=== PATIENT | female | born 1965 | race American Indian/Alaskan Native ===

== ENCOUNTER 2016-10-21 12:27 | Emergency (ER) | payer OTHER ==
[2016-10-21 12:50] VITALS: BP 129/87
[2016-10-21] MEDS ORDERED: BENADRYL IV ONE (13:11)
--- NOTE | 2016-10-21 13:34 | Emergency Department Report ---
HPI - General Chief Complaint: Allergic Reaction Time Seen by Provider: 10/21/16 13:04 - HPI HPI: Chief complaint: Possible allergic reaction HPI: Patient is a 50-year-old female states she was at work and heard water running in the ceiling and then began dripping down out of the ceiling. Patient states that she and several of her coworkers started having coughing episodes and one of her coworkers vomited. Patient states that she herself is quite tightening in her throat and developed a rash around her neck. No wheezing swelling no drooling. patient has seasonal allergies as well as allergies to codeine and sulfa. it appears that there was a overflow of a toilet and that was where the water was coming from. Mode of arrival: Ambulated from another part of the hospital Source: [Patient] Began: Just prior to admission Duration: 30 minutes Context: See above Quality: Headache Severity: 7 out of 10 Improved with: Nothing Worsened with: Nothing Associated signs and symptoms: No fever, vomiting or diarrhea. No wheezing ED Past Medical Hx - Past Medical History Hx Hypertension: No Hx Asthma: Yes - Surgical History Hx Breast Surgery: Yes (left breast.) - Social History Smoking Status: Never Smoker Substance Use Type: None - Medications Home Medications: Home Medications Medication Instructions Recorded Confirmed Last Taken Type No Known Home Medications [No 05/26/14 05/26/14 Unknown History Reported Home Medications] ED Review of Systems ROS: Stated complaint: ALLERGIC REACTION Other details as noted in HPI ROS Constitutional: No fever ENT: No uri symptoms Cardiovascular: No chest pain Respiratory: No wheezing GI: No nausea vomiting or diarrhea : No dysuria frequency or urgency, Skin: See HPI Neuro: No focal weakness or numbness Psych: No depression Marino/lymph: No edema Physical Exam - Physical Exam Vital Signs: Vital Signs 10/21/16 12:45 Temperature 98.2 F Pulse Rate 103 H Respiratory 20 Rate Blood Pressure 129/87 O2 Sat by Pulse 100 Oximetry Physical Exam: GENERAL: The patient is well-developed well-nourished . HEENT: Normocephalic. Atraumatic. Extraocular motions are intact. Patient has moist mucous membranes. NECK: Supple. No meningitic signs are noted. There is no adenopathy noted. CHEST/LUNGS: Clear to auscultation. There is no respiratory distress noted. HEART/CARDIOVASCULAR: Regular. There is no tachycardia. There is no gallop rub or murmur. ABDOMEN: Abdomen is soft, nontender. Patient has normal bowel sounds. There is no abdominal distention. SKIN: Erythematous rash around patient's neck but no urticaria or welts noted. There is no edema. There is no diaphoresis. NEURO: The patient is awake, alert, and oriented. The patient is cooperative. The patient has no focal neurologic deficits. The patient has normal speech. MUSCULOSKELETAL: There is no tenderness or deformity. There is no limitation range of motion. There is no evidence of acute injury. ED Course Vital Signs 10/21/16 12:45 Temperature 98.2 F Pulse Rate 103 H Respiratory 20 Rate Blood Pressure 129/87 O2 Sat by Pulse 100 Oximetry - Reevaluation(s) Reevaluation #1: 10/21/16 13:33 Patient given 25 mg of Benadryl and 125 mg of Solu-Medrol IV. Critical care attestation.: If time is entered above; I have spent that time in minutes in the direct care of this critically ill patient, excluding procedure time. ED Disposition Clinical Impression: Allergic reaction Qualifiers: Encounter type: initial encounter Qualified Code(s): T78.40XA - Allergy, unspecified, initial encounter Disposition: DISCHARGED TO HOME OR SELFCARE Is pt being admited?: No Does the pt Need Aspirin: No Condition: Stable Instructions: Allergies (ED) Additional Instructions: Take Zyrtec (generic is fine) if he develops any further symptoms. Follow-up in an emergency room if your throat closes up or you begin wheezing or having difficulty breathing. Referrals: PRIMARY CARE,MD [Primary Care Provider] - 3-5 Days Time of Disposition: 15:02
[2016-10-21] MEDS ORDERED: TYLENOL PO ONE (15:04)
== END 2016-10-21 15:55 | disposition home or self-care (01) ==
LOC: ED 12:27
DX: T78.40XA Allergy, unspecified, initial encounter (principal); J45.909 Unspecified asthma, uncomplicated; Z88.6 Allergy status to analgesic agent; Z88.2 Allergy status to sulfonamides; X58.XXXA Exposure to other specified factors, initial encounter; Y93.89 Activity, other specified; Y99.8 Other external cause status; Y92.89 Other specified places as the place of occurrence of the external cause
CPT/HCPCS: 96374; 96375; 99282; J1200; J2930

== ENCOUNTER 2019-03-26 11:10 | Emergency (ER) | payer BC, OTHER ==
--- NOTE | 2019-03-26 11:21 | Event Note ---
ED Screening Note Date of service: 03/26/19 Time: 11:19 ED Screening Note: This is a 53 y.o. F. that presents to the ER with abdominal pain and nausea since last night. PMH Asthma LMP 03/02/2019 This initial assessment/diagnostic orders/clinical plan/treatment(s) is/are subject to change based on patients health status, clinical progression and re- assessment by fellow clinical providers in the ED. Further treatment and workup at subsequent clinical providers discretion. Patient/guardian urged not to elope from the ED as their condition may be serious if not clinically assessed and managed. Initial orders include: Labs
[2019-03-26 11:55] LABS: Bacteria,Urine 1+ /HPF (Negative); Bilirubin,Urine NEG (Negative); Blood,Urine NEG (Negative); Color,Urine Straw (Yellow); Protein,Urine <15 mg/dL mg/dL (Negative); Urobilinogen,Urine < 2.0 mg/dL (<2.0)
[2019-03-26] MEDS ORDERED: ZOFRAN IV ONE (11:56)
[2019-03-26] MEDS ORDERED: NACL 0.9% 1000 ML 1,000 ML IV ONE (11:56)
[2019-03-26 11:57] LABS: Basophils # (Auto) 0.1 K/mm3 (0.0-0.1); Basophils % (Auto) 1.3 % (0.0-1.8); Eosinophils % (Auto) 0.6 % (0.0-4.3); Hematocrit 39.6 % (30.3-42.9); Hemoglobin 13.3 gm/dl (10.1-14.3); Lymphocytes # (Auto) 1.2 K/mm3 (1.2-5.4); Lymphocytes % (Auto) 28.6 % (13.4-35.0); Mean Corpuscular HGB Conc 34 % (30-34); Mean Corpuscular Volume 92 fl (79-97); Monocytes # (Auto) 0.3 K/mm3 (0.0-0.8); Monocytes % (Auto) 7.9 % (0.0-7.3); Platelet Count 296 K/mm3 (140-440); Red Blood Count 4.29 M/mm3 (3.65-5.03); Red Cell Distribution Width 12.8 % (13.2-15.2)
[2019-03-26 12:19] LABS: Alanine Aminotransferase 16 units/L (7-56); BUN/Creatinine Ratio 17; Blood Urea Nitrogen 12 mg/dL (7-17); Calcium 9.5 mg/dL (8.4-10.2); Hemolysis Index 11
--- NOTE | 2019-03-26 12:20 | Emergency Department Report ---
ED Abdominal Pain HPI - General Chief Complaint: Abdominal Pain Stated Complaint: STOMACH PAIN Time Seen by Provider: 03/26/19 11:19 Source: patient Mode of arrival: Ambulatory Limitations: No Limitations - History of Present Illness Initial Comments: Patient is a 53-year-old female presents to the emergency room with complaints of epigastric abdominal pain that began last night. she describes the pain as a stabbing sensation. she has associated nausea and diarrhea. She denies any vomiting, fever, urinary symptoms, melena, hematochezia. she denies ever having this before. she states that yesterday she ate fried chicken. She states her only abdominal surgeries are tubal ligation and ovarian cyst removal. She states her only past medical history is asthma. Last menstrual cycle March 02. - Related Data Previous Rx's Medication Instructions Recorded Last Taken Type Dicyclomine [Bentyl] 10 mg PO QID PRN #20 capsule 03/26/19 Unknown Rx Famotidine [Pepcid] 20 mg PO BID #60 tablet 03/26/19 Unknown Rx Allergies Allergy/AdvReac Type Severity Reaction Status Date / Time codeine Allergy hallucinati Verified 05/26/14 13:14 ons Sulfa (Sulfonamide Allergy Rash Verified 05/26/14 13:13 Antibiotics) ED Review of Systems ROS: Stated complaint: STOMACH PAIN Other details as noted in HPI Comment: All other systems reviewed and negative ED Past Medical Hx - Past Medical History Previous Medical History?: Yes Hx Hypertension: No Hx Asthma: Yes - Surgical History Past Surgical History?: Yes Hx Breast Surgery: Yes (left breast.) - Social History Smoking Status: Never Smoker Substance Use Type: None - Medications Home Medications: Home Medications Medication Instructions Recorded Confirmed Last Taken Type Dicyclomine [Bentyl] 10 mg PO QID PRN #20 capsule 03/26/19 Unknown Rx Famotidine [Pepcid] 20 mg PO BID #60 tablet 03/26/19 Unknown Rx ED Physical Exam - General Limitations: No Limitations General appearance: alert, in no apparent distress - Head Head exam: Present: atraumatic, normocephalic - Eye Eye exam: Present: normal appearance, PERRL - ENT ENT exam: Present: mucous membranes moist - Respiratory Respiratory exam: Present: normal lung sounds bilaterally. Absent: respiratory distress, wheezes, rales, rhonchi, stridor, accessory muscle use, decreased breath sounds, prolonged expiratory - Cardiovascular Cardiovascular Exam: Present: regular rate, normal rhythm, normal heart sounds. Absent: systolic murmur, diastolic murmur, rubs, gallop - GI/Abdominal GI/Abdominal exam: Present: soft, tenderness (epigastric), normal bowel sounds. Absent: distended, guarding, rebound, rigid - Back Exam Back exam: Absent: CVA tenderness (R), CVA tenderness (L) - Neurological Exam Neurological exam: Present: alert, oriented X3 - Psychiatric Psychiatric exam: Present: normal affect, normal mood - Skin Skin exam: Present: warm, dry, intact ED Course Vital Signs 03/26/19 03/26/19 11:19 15:42 Temperature 98.1 F 98.6 F Pulse Rate 65 55 L Respiratory 22 16 Rate Blood Pressure 141/83 Blood Pressure 136/79 [Left] O2 Sat by Pulse 100 99 Oximetry ED Medical Decision Making - Lab Data Result diagrams: 03/26/19 11:37 03/26/19 11:37 - EKG Data EKG shows normal: sinus rhythm, axis, QRS complexes, ST-T waves Rate: bradycardia (at 59) - EKG Data 03/26/19 15:29 mildly prolonged KS interval at 218 - Radiology Data Radiology results: report reviewed CT ABDOMEN AND PELVIS WITH CONTRAST HISTORY: epigastric abd pain COMPARISON: None. TECHNIQUE: Axial CT images were obtained through the abdomen and pelvis after 100 cc of Omnipaque 300 intravenously. Sagittal and coronal reformatted images. All CT scans at this location are performed using CT dose reduction for ALARA by means of automated exposure cont rol. FINDINGS: CT ABDOMEN: Lung Bases: Clear. Liver: No significant abnormality. Biliary: No significant abnormality. Spleen: No significant abnormality. Unenlarged. Pancreas: No significant abnormality. Adrenals: No significant abnormality. Kidneys: No significant abnormality. Lymphatics: No lymphadenopathy. Vasculature: No significant abnormality. Bowel/Peritoneum: No significant abnormality. No free air. No free fluid. Normal appendix. CT PELVIS: : The uterus is lobulated with multiple small and medium sized fibroids. The largest fibroid measures 4.6 cm at the uterine fundus. A 3.2 cm right ovarian cyst is identified. The left adnexa is unremarkable. Osseous Structures: No significant abnormality. Additional Findings: None IMPRESSION: No acute inflammatory process is identified. Uterine fibroid disease. 3.2 cm right ovarian cyst. Deb Name: Otis Raza Jr, MD Signed: 03/26/2019 3:15 PM Workstation Name: [id number] Transcribed By: TTR Dictated By: OTIS RAZA JR, MD Electronically Authenticated By: OTIS RAZA JR, MD Signed Date/Time: 03/26/19 3225 - Medical Decision Making Patient is a 53-year-old female presents to the emergency room with complaints of epigastric abdominal pain that began last night. she describes the pain as a stabbing sensation. she has associated nausea and diarrhea. She denies any vomiting, fever, urinary symptoms, melena, hematochezia. she denies ever having this before. she states that yesterday she ate fried chicken. She states her only abdominal surgeries are tubal ligation and ovarian cyst removal. She states her only past medical history is asthma. Last menstrual cycle March 02. vitals are normal. on exam: epigastric TTP. labs WNL. UA without evidence of UTI. EKG with mildly prolonged KS interval, otherwise normal. CT abd pelvis shows: No acute inflammatory process is identified. Uterine fibroid disease. 3.2 cm right ovarian cyst. discussed CT results with pt. pt given 1L of NS and medications for GERD/PUD symptoms. pt states her symptoms improved. pt given prescription for bentyl and pepcid and given handout on diet for GERD. advised pt to please take medication as prescribed. Follow up with a GI doctor and [facility] in the next 2-3 days. Return to the emergency room for any new or worsening symptoms. - Differential Diagnosis gastritis, pancreatitis, PUD, GERD, cholcystitis, cholethiasis, ACS Critical care attestation.: If time is entered above; I have spent that time in minutes in the direct care of this critically ill patient, excluding procedure time. ED Disposition Clinical Impression: Abdominal pain Qualifiers: Abdominal location: epigastric Qualified Code(s): R10.13 - Epigastric pain GERD (gastroesophageal reflux disease) Qualifiers: Esophagitis presence: without esophagitis Qualified Code(s): K21.9 - Gastro- esophageal reflux disease without esophagitis Uterine fibroid Qualifiers: Uterine leiomyoma location: unspecified location Qualified Code(s): D25.9 - Leiomyoma of uterus, unspecified Ovarian cyst Qualifiers: Laterality: right Qualified Code(s): N83.201 - Unspecified ovarian cyst, right side Disposition: TO HOME OR SELFCARE Is pt being admited?: No Does the pt Need Aspirin: No Condition: Stable Instructions: Ovarian Cyst (ED), Uterine Fibroids (ED), Diet for Ulcers and Gastritis (ED), Gastroesophageal Reflux Disease (ED) Additional Instructions: Please take medication as prescribed. Follow up with a GI doctor and [facility] in the next 2-3 days. Return to the emergency room for any new or worsening symptoms. Prescriptions: Dicyclomine [Bentyl] 10 mg PO QID PRN #20 capsule PRN Reason: abdominal pain Famotidine [Pepcid] 20 mg PO BID #60 tablet Referrals: EAKLY LEONEL YOUSSEF MD [Primary Care Provider] - 2-3 Days [facility] [Provider Group] - 2-3 Days [facility] [Provider Group] - 2-3 Days Time of Disposition: 15:24 Print Language: GEORGIAN
[2019-03-26] MEDS ORDERED: BENTYL PO ONE (12:27)
[2019-03-26] MEDS ORDERED: ALUM-MAG HYDROX-SIMETH 200-200-20MG/5ML PO ONE (12:27)
[2019-03-26] MEDS ORDERED: LIDOCAINE VISCOUS 2% PO ONE (12:27)
--- NOTE | 2019-03-26 15:19 | Cat Scan Report ---
CT ABDOMEN AND PELVIS WITH CONTRAST HISTORY: epigastric abd pain COMPARISON: None. TECHNIQUE: Axial CT images were obtained through the abdomen and pelvis after 100 cc of Omnipaque 300 intravenously. Sagittal and coronal reformatted images. All CT scans at this location are performed using CT dose reduction for ALARA by means of automated exposure control. FINDINGS: CT ABDOMEN: Lung Bases: Clear. Liver: No significant abnormality. Biliary: No significant abnormality. Spleen: No significant abnormality. Unenlarged. Pancreas: No significant abnormality. Adrenals: No significant abnormality. Kidneys: No significant abnormality. Lymphatics: No lymphadenopathy. Vasculature: No significant abnormality. Bowel/Peritoneum: No significant abnormality. No free air. No free fluid. Normal appendix. CT PELVIS: : The uterus is lobulated with multiple small and medium sized fibroids. The largest fibroid measur es 4.6 cm at the uterine fundus. A 3.2 cm right ovarian cyst is identified. The left adnexa is unrema rkable. Osseous Structures: No significant abnormality. Additional Findings: None IMPRESSION: No acute inflammatory process is identified. Uterine fibroid disease. 3.2 cm right ovarian cyst. Signer Name: Otis Coburn Jr, MD Signed: 03/26/2019 3:15 PM Workstation Name: [id number]
[2019-03-26 15:50] VITALS: BP 136/79
== END 2019-03-26 15:45 | disposition home or self-care (01) ==
LOC: ED 11:10 → EEVIPCON 11:10 → ED 15:45
DX: K21.9 Gastro-esophageal reflux disease without esophagitis (principal); D25.9 Leiomyoma of uterus, unspecified; N83.201 Unspecified ovarian cyst, right side; J45.909 Unspecified asthma, uncomplicated; Z98.890 Other specified postprocedural states; Z79.899 Other long term (current) drug therapy; Z88.5 Allergy status to narcotic agent; Z88.2 Allergy status to sulfonamides
CPT/HCPCS: 36415; 74177; 80053; 81001; 83690; 84484; 84703; 85025; 93005; 93010; 96361; 96374; 99284; J2405; J7030; Q9967

== ENCOUNTER 2019-04-20 07:06 | Outpatient (CLI) | payer BC ==
--- NOTE | 2019-04-20 09:43 | Mammography Report ---
BILATERAL DIGITAL SCREENING MAMMOGRAM WITH CAD INDICATION: Screening. COMPARISONS: 02/10/2017 and 01/30/2016 FINDINGS: Craniocaudal and mediolateral oblique views of both breasts were obtained using 2-D digital acquisition. In addition to standard review, the examination was analyzed for possible abnormalities using a computer-assisted detection device (iCAD). The breast tissue is heterogeneously dense, which may obscure small masses. A left asymmetry on the MLO view requires additional imaging. No suspicious calcifications. The right breast is negative. IMPRESSION: Left asymmetry requiring additional imaging. Recommend recall for left lateral and spot compression M LO views and left breast ultrasound if needed. BI-RADS CATEGORY 0: INCOMPLETE - NEED ADDITIONAL IMAGING EVALUATION AND/OR PRIOR MAMMOGRAMS FOR COMP ARISON Information is entered into a reminder system for a target due date for the next mammogram. The resul ts and recommendations were sent to the patient by mail. Signer Name: Salvador Scherer MD Signed: 04/20/2019 9:38 AM Workstation Name: [id number]
== END 2019-04-20 07:07 | disposition home or self-care (01) ==
LOC: MAMMO 07:06
PROVIDERS: ATTEND Internal Medicine
DX: Z12.31 Encounter for screening mammogram for malignant neoplasm of breast (principal); J45.909 Unspecified asthma, uncomplicated; K21.9 Gastro-esophageal reflux disease without esophagitis
CPT/HCPCS: 77067

== ENCOUNTER 2019-04-23 07:12 | Outpatient (CLI) | payer BC ==
--- NOTE | 2019-04-23 08:31 | Mammography Report ---
DIGITAL DIAGNOSTIC MAMMOGRAM WITH CAD, -- 04/23/2019 INDICATION: Patient presents as a callback from screening for further evaluation of an asymmetry in t he left breast. TECHNIQUE: Digital left mammographic imaging was performed. Spot compression views were obtained. This examination was interpreted with the benefit of Computer-aided Detection analysis. COMPARISON: Prior mammograms dated 04/20/2019, 01/30/2016, and 01/16/2016 FINDINGS: Breast Density: The breasts are heterogeneously dense, which may obscure small masses. The previously described asymmetry in the left breast does not persist on additional views, compatibl e with overlapping fibroglandular tissue. There is no evidence of dominant mass, suspicious calcifica tions or architectural distortion in the left breast. IMPRESSION: Follow up recommendation: Routine yearly BI-RADS Category 1: Negative. Recommend routine screening mammography in one year. A "normal" or negative report should not discourage follow up or biopsy of a clinically significant f inding. A written summary of these findings will be mailed to the patient. The patient will be entered into a mammography reporting system which will generate a reminder letter for the patient's next appointmen t at the appropriate interval. According to the [employer] [place] [employer], yearly mammograms are recommended starting at age 40 and continuing as long as a woman is in good health. Breast MRI is recommended for women with an ilene roximately 20-25% or greater lifetime risk of breast cancer, including women with a strong family his tory of breast or ovarian cancer and women who have been treated for Hodgkin's disease. Signer Name: Malou Martinez MD Signed: 04/23/2019 8:27 AM Workstation Name: [id number]
== END 2019-04-23 07:13 | disposition home or self-care (01) ==
LOC: US 07:12
PROVIDERS: ATTEND Internal Medicine
DX: R92.8 Other abnormal and inconclusive findings on diagnostic imaging of breast (principal); Z80.3 Family history of malignant neoplasm of breast; Z80.41 Family history of malignant neoplasm of ovary

== ENCOUNTER 2019-05-10 07:03 | Emergency (ER) | payer BC ==
--- NOTE | 2019-05-10 08:03 | XRay Report ---
CHEST 2 VIEWS INDICATION: Chest Pain. COMPARISON: None FINDINGS: Support devices: None. Heart: Within normal limits. Lungs/pleura: No acute air space or interstitial disease. No pneumothorax. Additional findings: None. IMPRESSION: No acute findings. Signer Name: Otis Coburn Jr, MD Signed: 05/10/2019 7:59 AM Workstation Name: [id number]
[2019-05-10 08:27] LABS: Basophils % (Auto) 0.7 % (0.0-1.8); Eosinophils % (Auto) 0.3 % (0.0-4.3); Hemoglobin 12.7 gm/dl (10.1-14.3); Lymphocytes # (Auto) 1.4 K/mm3 (1.2-5.4); Lymphocytes % (Auto) 26.3 % (13.4-35.0); Mean Corpuscular HGB Conc 33 % (30-34); Mean Corpuscular Volume 93 fl (79-97); Monocytes # (Auto) 0.4 K/mm3 (0.0-0.8); Monocytes % (Auto) 8.3 % (0.0-7.3); Platelet Count 266 K/mm3 (140-440); Red Blood Count 4.08 M/mm3 (3.65-5.03); Red Cell Distribution Width 12.9 % (13.2-15.2)
[2019-05-10 08:29] LABS: BUN/Creatinine Ratio 10; Blood Urea Nitrogen 7 mg/dL (7-17); Calcium 8.5 mg/dL (8.4-10.2); Hemolysis Index 3
[2019-05-10] MEDS ORDERED: ZOFRAN IV ONE (08:53)
[2019-05-10] MEDS ORDERED: LIDOCAINE VISCOUS 2% PO ONE (08:53)
[2019-05-10] MEDS ORDERED: ALUM-MAG HYDROX-SIMETH 200-200-20MG/5ML PO ONE (08:53)
[2019-05-10] MEDS ORDERED: SUBLIMAZE IV ONE ×3 (08:54→10:00)
--- NOTE | 2019-05-10 08:59 | Emergency Department Report ---
ED Chest Pain HPI - General Chief Complaint: Chest Pain Stated Complaint: CHEST PAIN, GERD Time Seen by Provider: 05/10/19 08:49 Source: patient Mode of arrival: Ambulatory Limitations: No Limitations - History of Present Illness Initial Comments: Patient is 53 years old female with history of GERD. Patient presented to the ER complaining of substernal chest pain that radiated to her upper abdomen. Patient stated that pain started 3 days ago. She stated that initially she thought this is may be GERD symptoms but is just getting worse. She stated that she is unable to lay flat on her bed because of the pain. Patient denied any recent fever or chills. No nausea or vomiting. MD Complaint: chest pain -: days(s) (3) Onset: during rest Pain Location: substernal Pain Radiation: none Severity: severe Severity scale (0 -10): 9 Quality: tightness Consistency: intermittent Improves With: nothing Worsens With: nothing - Related Data Home Medications Medication Instructions Recorded Confirmed Last Taken Fluticasone Propion/Salmeterol 1 each IH BID 05/10/19 05/10/19 05/09/19 [Fluticasone-Salmeterol 250-50] Omeprazole 20 mg PO QDAY 05/10/19 05/10/19 05/09/19 cycloSPORINE [Restasis 0.05%] 1 drop OP BID 05/10/19 05/10/19 05/09/19 Allergies Allergy/AdvReac Type Severity Reaction Status Date / Time codeine Allergy hallucinati Verified 05/26/14 13:14 ons Sulfa (Sulfonamide Allergy Rash Verified 05/26/14 13:13 Antibiotics) Heart Score - HEART Score History: Slightly suspicious EKG: Non-specific Age: < 45 Risk factors: No known risk factors Troponin: < normal limit HEART Score: 1 ED Review of Systems ROS: Stated complaint: CHEST PAIN, GERD Other details as noted in HPI Comment: All other systems reviewed and negative Constitutional: denies: chills, fever Respiratory: denies: cough, shortness of breath, SOB with exertion, SOB at rest Cardiovascular: chest pain. denies: palpitations Gastrointestinal: abdominal pain (epigastric). denies: nausea, vomiting Musculoskeletal: denies: back pain Neurological: denies: headache, weakness, numbness, paresthesias, confusion ED Past Medical Hx - Past Medical History Previous Medical History?: Yes Hx Hypertension: No Hx GERD: Yes Hx Asthma: Yes - Surgical History Past Surgical History?: Yes Hx Breast Surgery: Yes (left breast.) - Social History Smoking Status: Never Smoker Substance Use Type: None - Medications Home Medications: Home Medications Medication Instructions Recorded Confirmed Last Taken Type Fluticasone Propion/Salmeterol 1 each IH BID 05/10/19 05/10/19 05/09/19 History [Fluticasone-Salmeterol 250-50] Omeprazole 20 mg PO QDAY 05/10/19 05/10/19 05/09/19 History cycloSPORINE [Restasis 0.05%] 1 drop OP BID 05/10/19 05/10/19 05/09/19 History ED Physical Exam - General Limitations: No Limitations General appearance: alert, in no apparent distress, anxious - Head Head exam: Present: atraumatic, normocephalic, normal inspection - Eye Eye exam: Present: normal appearance, PERRL - ENT ENT exam: Present: normal exam, normal orophraynx, mucous membranes moist - Neck Neck exam: Present: normal inspection, full ROM. Absent: tenderness, meningismus, lymphadenopathy, thyromegaly - Respiratory Respiratory exam: Present: normal lung sounds bilaterally - Cardiovascular Cardiovascular Exam: Present: regular rate, normal rhythm, normal heart sounds - GI/Abdominal GI/Abdominal exam: Present: soft, normal bowel sounds. Absent: distended, tenderness, guarding, rebound, rigid, organomegaly, mass, bruit, pulsatile mass, hernia - Extremities Exam Extremities exam: Present: normal inspection, full ROM, normal capillary refill. Absent: tenderness, pedal edema, calf tenderness - Back Exam Back exam: Present: normal inspection, full ROM. Absent: CVA tenderness (R), CVA tenderness (L), muscle spasm, paraspinal tenderness, vertebral tenderness - Neurological Exam Neurological exam: Present: alert, oriented X3, CN II-XII intact, normal gait, reflexes normal - Skin Skin exam: Present: warm, intact, normal color ED Course Vital Signs 05/10/19 05/10/19 05/10/19 07:09 09:30 11:49 Temperature 98.1 F 97.7 F Pulse Rate 90 78 64 Respiratory 16 20 16 Rate Blood Pressure 115/79 133/86 114/72 [Left] O2 Sat by Pulse 100 100 100 Oximetry 05/10/19 05/10/19 05/10/19 13:00 14:00 15:00 Temperature 97.9 F Pulse Rate 74 72 74 Respiratory 14 16 16 Rate Blood Pressure 122/78 118/71 122/78 [Left] O2 Sat by Pulse 100 98 100 Oximetry ED Medical Decision Making - Lab Data Result diagrams: 05/10/19 07:24 05/10/19 07:24 - EKG Data -: EKG Interpreted by In EKG shows normal: sinus rhythm Rate: normal - Radiology Data Radiology results: report reviewed Referring Physician: NADEEN QUICK Patient Name: OSVALDO KEATING Date of : 1965 Sex: Female Report Date: 2019-05-10 Report Status: Finalized Findings [address] [address] XRay Report Signed Patient: OSVALDO KEATING MR#: [id number] : 1965 Acct:[id number] Age/Sex: 53 / F ADM Date: 05/10/19 Loc: ED Attending Dr: Ordering Physician: NADEEN QUICK MD Date of Service: 05/10/19 Procedure(s): XR chest routine 2V Accession Number(s): [id number] cc: ED MD ABDELRAHMAN Fluoro Time In Minutes: CHEST 2 VIEWS INDICATION: Chest Pain. COMPARISON: None FINDINGS: Support devices: None. Heart: Within normal limits. Lungs/pleura: No acute air space or interstitial disease. No pneumothorax. Additional findings: None. IMPRESSION: No acute findings. Signer Name: Otis Coburn Jr, MD Signed: 05/10/2019 7:59 AM Workstation Name: [id number] Transcribed By: TTR Dictated By: OTIS COBURN JR, MD Electronically Authenticated By: OTIS COBURN JR, MD Signed Date/Time: 05/10/19 0759 Referring Physician: SHAQUILLE HENRY Patient Name: OSVALDO KEATING Date of : 1965 Sex: Female Report Date: 2019-05-10 Report Status: Finalized Findings [address] [address] Nuclear Medicine Report Signed Patient: OSVALDO KEATING MR#: [id number] : 1965 Acct:[id number] Age/Sex: 53 / F ADM Date: 05/10/19 Loc: ED Attending Dr: Ordering Physician: SHAQUILLE HENRY Date of Service: 05/10/19 Procedure(s): NM lung scan perf/vent Accession Number(s): [id number] cc: SHAQUILLE HENRY VENTILATION PERFUSION PULMONARY SCINTIGRAPHY HISTORY: Chest pain, shortness of breath COMPARISON: 05/10/2019 chest radiograph. TECHNIQUE: Radiopharmaceutical was inhaled. Tc-99m-MAA was then injected. Ventilation and perfusion images were acquired. RADIOPHARMACEUTICAL: 9.6 mCi of Xe-133 inhaled 4.5 mCi of Tc-99m-MAA injected FINDINGS: VENTILATION: No significant air trapping or defect. PERFUSION: No significant segmental or non-segmental defect. Additional Findings: None. IMPRESSION: 1. Low probability for pulmonary embolism. Signer Name: Otis Coburn Jr, MD Signed: 05/10/2019 11:41 AM Workstation Name: [id number] Transcribed By: TTR Dictated By: OTIS COBURN JR, MD Electronically Authenticated By: OTIS COBURN JR, MD Signed Date/Time: 05/10/19 1141 DD/ 1140 TD/TT: Referring Physician: SHAQUILLE HENRY Patient Name: OSVALDO KEATING Date of : 1965 Sex: Female Report Date: 2019-05-10 Report Status: Finalized Findings [facility] [address] [place] [address] Cat Scan Report Signed Patient: OSVALDO KEATING MR#: [id number] : 1965 Acct:[id number] Age/Sex: 53 / F ADM Date: 05/10/19 Loc: ED Attending Dr: Ordering Physician: SHAQUILLE HENRY Date of Service: 05/10/19 Procedure(s): CT abdomen pelvis wo con Accession Number(s): [id number] cc: SHAQUILLE HENRY CT ABDOMEN AND PELVIS WITHOUT CONTRAST HISTORY: ABDOMINAL PAIN COMPARISON: 03/26/2019 TECHNIQUE: Routine abdominal and pelvic CT exam performed without contrast. Lack of intravenous contrast limits evaluation of the vascular and solid organs. Note: All CT scans at this location are performed using CT dose reduction employed for [facility] by means of automated exposure control. CONTRAST: None. FINDINGS: CT ABDOMEN: Lung Bases: Clear. Liver: No significant abnormality. Biliary: No significant abnormality. Spleen: No significant abnormality. Unenlarged. Pancreas: No significant abnormality. Adrenals: No significant abnormality. Kidneys: No significant abnormality. Lymphatics: No lymphadenopathy. Vasculature: No significant abnormality. Bowel/Peritoneum: No significant abnormality. No free air. No free fluid. Normal appendix. CT PELVIC: : Enlarged uterus with a lobulated contour consistent with uterine fibroids. A 3 cm right ovarian cyst and an adjacent 1 cm tubular structure consistent with a hydrosalpinx. A 2.3 cm cyst of the left ovary. Osseous Structures: No significant abnormality. Additional Findings: No mass or free fluid. IMPRESSION: 1. Normal abdomen. 2. Bilateral ovarian cysts. 3. A small right hydrosalpinx. . Signer Name: Ike Payne MD Signed: 05/10/2019 3:22 PM Workstation Name: [id number] Transcribed By: REF Dictated By: IKE PAYNE MD Electronically Authenticated By: IKE PAYNE MD Signed Date/Time: 05/10/19 1522 DD/ 1515 TD/TT: DD/ 0758 TD/TT: - Medical Decision Making Patient is 53 years old female with history of GERD. Patient presented to the ER complaining of substernal chest pain that radiated to her upper abdomen. Patient stated that pain started 3 days ago. She stated that initially she thought this is may be GERD symptoms but is just getting worse. She stated that she is unable to lay flat on her bed because of the pain. Patient denied any recent fever or chills. No nausea or vomiting. Patient EKG no ST elevation or depression. Chest x-ray is unremarkable. Labs reviewed and show a slightly elevated d-dimer for which patient had a VQ scan study which it came back low probability for PE. CT abdomen and pelvis is negative for acute finding. Patient's symptoms significantly improved with morphine and GI cocktail. 2 sets of troponin is negative. I believe patient's symptoms is most likely related to gastritis in GERD. Patient advised to follow-up with her GI doctor in the next 2-3 days for possible upper GI endoscopy. Patient also advised to return to the ER if symptoms are not improve d. Critical care attestation.: If time is entered above; I have spent that time in minutes in the direct care of this critically ill patient, excluding procedure time. ED Disposition Clinical Impression: Chest pain, Abdominal pain Disposition: TO HOME OR SELFCARE Is pt being admited?: No Condition: Stable Instructions: Chest Pain (ED), Acute Abdominal Pain (ED) Referrals: LEONEL GARCIA MD [Primary Care Provider] - 3-5 Days
[2019-05-10] MEDS ORDERED: SUBLIMAZE IV NR (09:00)
[2019-05-10] MEDS ORDERED: ZOFRAN IM ONE (09:10)
[2019-05-10 10:02] LABS: INR 1.02 (0.87-1.13)
[2019-05-10 10:05] LABS: Partial Thromboplastin Time 24.8 Sec. (24.2-36.6)
--- NOTE | 2019-05-10 11:46 | Nuclear Medicine Report ---
VENTILATION PERFUSION PULMONARY SCINTIGRAPHY HISTORY: Chest pain, shortness of breath COMPARISON: 05/10/2019 chest radiograph. TECHNIQUE: Radiopharmaceutical was inhaled. Tc-99m-MAA was then injected. Ventilation and perfusion images were acquired. RADIOPHARMACEUTICAL: 9.6 mCi of Xe-133 inhaled 4.5 mCi of Tc-99m-MAA injected FINDINGS: VENTILATION: No significant air trapping or defect. PERFUSION: No significant segmental or non-segmental defect. Additional Findings: None. IMPRESSION: 1. Low probability for pulmonary embolism. Signer Name: Otis Coburn Jr, MD Signed: 05/10/2019 11:41 AM Workstation Name: [id number]
[2019-05-10] MEDS ORDERED: MORPHINE IV ONE (14:58)
--- NOTE | 2019-05-10 15:26 | Cat Scan Report ---
CT ABDOMEN AND PELVIS WITHOUT CONTRAST HISTORY: ABDOMINAL PAIN COMPARISON: 03/26/2019 TECHNIQUE: Routine abdominal and pelvic CT exam performed without contrast. Lack of intravenous cont rast limits evaluation of the vascular and solid organs. Note: All CT scans at this location are perf ormed using CT dose reduction employed for [facility] by means of automated exposure control. CONTRAST: None. FINDINGS: CT ABDOMEN: Lung Bases: Clear. Liver: No significant abnormality. Biliary: No significant abnormality. Spleen: No significant abnormality. Unenlarged. Pancreas: No significant abnormality. Adrenals: No significant abnormality. Kidneys: No significant abnormality. Lymphatics: No lymphadenopathy. Vasculature: No significant abnormality. Bowel/Peritoneum: No significant abnormality. No free air. No free fluid. Normal appendix. CT PELVIC: : Enlarged uterus with a lobulated contour consistent with uterine fibroids. A 3 cm right ovarian c yst and an adjacent 1 cm tubular structure consistent with a hydrosalpinx. A 2.3 cm cyst of the left ovary. Osseous Structures: No significant abnormality. Additional Findings: No mass or free fluid. IMPRESSION: 1. Normal abdomen. 2. Bilateral ovarian cysts. 3. A small right hydrosalpinx. . Signer Name: Salvador Scherer MD Signed: 05/10/2019 3:22 PM Workstation Name: [id number]
[2019-05-10 16:17] VITALS: BP 114/69
== END 2019-05-10 16:17 | disposition home or self-care (01) ==
LOC: ED 07:03
DX: R07.89 Other chest pain (principal); R10.9 Unspecified abdominal pain; K21.9 Gastro-esophageal reflux disease without esophagitis; J45.909 Unspecified asthma, uncomplicated; Z98.890 Other specified postprocedural states; Z88.6 Allergy status to analgesic agent; Z88.2 Allergy status to sulfonamides
CPT/HCPCS: 36415; 71046; 74176; 78582; 80048; 83690; 84484; 84703; 85025; 85379; 85610; 85730; 93005; 93010; 96372; 96374; 96375; 99285; A9540; A9558; J2270; J2405; J3010

== ENCOUNTER 2019-05-24 07:16 | Outpatient (CLI) | payer BC ==
[~2019-05-24 07:16] MED LIST: REGADENOSON 0.4 MG/5 ML INJ IV ONE
--- NOTE | 2019-05-24 08:01 | Ultrasound Report ---
LIMITED RUQ ABDOMINAL ULTRASOUND INDICATION: R10.13 ABDOMINAL PAIN. COMPARISON: Noncontrast CT abdomen and pelvis dated 05/10/2019. FINDINGS: Pancreas: Visualized portions show no significant abnormality. Abdominal Aorta: No significant abnormality. IVC: No significant abnormality. Liver: The liver measures 14 cm in length. No significant abnormality. Normal hepatopedal blood flow in the main portal vein. Gallbladder: No significant abnormality. Bile ducts: No significant abnormality. Common bile duct measures 3 mm. Right kidney: No significant abnormality visualized.. Free fluid: None. Additional Findings: None. IMPRESSION: Normal exam. Signer Name: Otis Coburn Jr, MD Signed: 05/24/2019 7:56 AM Workstation Name: [id number]
== END 2019-05-24 07:17 | disposition home or self-care (01) ==
LOC: US 07:16
PROVIDERS: ATTEND Internal Medicine Gastroenterology
DX: R10.13 Epigastric pain (principal); J45.909 Unspecified asthma, uncomplicated; K21.9 Gastro-esophageal reflux disease without esophagitis
CPT/HCPCS: 76705; J2785

== ENCOUNTER 2019-06-01 10:48 | Day surgery (SDC) | payer BC ==
[~2019-06-01 10:48] MED LIST changes: -REGADENOSON 0.4 MG/5 ML INJ IV ONE; +SODIUM CHLORIDE 0.9% 1000 ML 1,000 ML IV SCH
--- NOTE | 2019-06-01 11:17 | Anesthesia Day of Surgery ---
Anesthesia Day of Surgery - Day of Surgery Patient Examined: Yes Patient H&P Reviewed: Yes Patient is NPO: Yes
--- NOTE | 2019-06-01 11:20 | Anesthesia Consultation ---
Anesthesia Consult and Med Hx Date of service: 06/01/19 - Airway Anesthetic Teeth Evaluation: Good ROM Head & Neck: Adequate Mental/Hyoid Distance: Adequate Mallampati Class: Class II Intubation Access Assessment: Probably Good - Pulmonary Exam CTA: Yes - Cardiac Exam Cardiac Exam: RRR - Pre-Operative Health Status ASA Pre-Surgery Classification: ASA2 Proposed Anesthetic Plan: General, MAC - Pulmonary Hx Asthma: Yes - Cardiovascular System Hx Hypertension: No - Gastrointestinal Hx Gastroesophageal Reflux Disease: Yes (presented to the ED with chest pain. negative cardiac enzymes and no pe. ) - Other Systems Hx Cancer: No
[2019-06-01] MEDS ORDERED: PROPOFOL 200 MG/20 ML VIAL IV ONE (12:25)
--- NOTE | 2019-06-01 13:07 | Short Stay Summary ---
Short Stay Documentation Date of service: 06/01/19 - History H&P: obtained from office - Allergies and Medications Current Medications: Allergies codeine Allergy (Verified 05/26/14 13:14) hallucinations shrimp Allergy (Verified 05/17/19 20:12) Hives Sulfa (Sulfonamide Antibiotics) Allergy (Verified 05/26/14 13:13) Rash Home Medications Medication Instructions Recorded Confirmed Last Taken Type RX: Fluticasone Propion/Salmeterol 1 each IH BID 05/10/19 06/01/19 05/29/19 History [Fluticasone-Salmeterol 250-50] Pantoprazole [Protonix] 40 mg PO QDAY #30 tablet 05/19/19 06/01/19 05/29/19 Rx ALBUTEROL Inhaler (OR & NICU) 2 puff INHALATION PRN PRN 06/01/19 06/01/19 05/18/19 History Advair Diskus 250-50 mcg 1 puff INHALATION BID 06/01/19 06/01/19 05/29/19 History NexIUM 40 mg PO DAILY 06/01/19 06/01/19 05/29/19 History Active Medications Sodium Chloride (Nacl 0.9% 1000 Ml) 1,000 mls @ 50 mls/hr IV DIRECT VALERIA Last Admin: 06/01/19 11:56 Dose: 50 mls/hr Documented by: - Brief post op/procedure progress note Date of procedure: 06/01/19 Findings: see dictation Estimated blood loss: none Pathology: none Condition: stable - Disposition Condition at discharge: Good Disposition: DC-01 TO HOME OR SELFCARE - Discharge Diagnoses (1) Colon cancer screening Status: Acute Short Stay Discharge Plan Activity: other (no driving for 24 hours) Weight Bearing Status: Full Weight Bearing Diet: regular Follow up with: EAN RIOS MD [Primary Care Provider] - 7 Days
--- NOTE | 2019-06-01 13:08 | Operative Report ---
Operative Report Operative Report: Date of procedure: 06/01/2019 Preprocedure diagnosis: Colon cancer screening, no prior studies. Average risk. Post procedure diagnosis: Normal study study Procedure: Colonoscopy to the cecum Endoscopist: Dr. Conley Anesthesia: Monitored anesthesia care per anesthesia department Estimated blood loss: 0 Medications: Monitored anesthesia care. See separate report by anesthesia for details. After careful discussion of the nature and purpose of the procedure as well as details of the technique risks benefits and alternatives the patient gave consent. Please see recent history and physical from the office. The patient was placed in the left lateral decubitus position and medicated per anesthesia. A rectal exam was performed sphincter tone was normal there were no masses palpable. The Olympus colonoscope was passed transanally and advanced under continuous direct vision without difficulty to the cecum. The colon was well prepared. The cecum was normal. The ascending colon was normal and on forward and retroflexed views. The transverse colon, descending colon, and sigmoid colon were normal. The rectum was normal on forward and retroflexed views. The procedure was well-tolerated overall and the patient was observed in recovery. Conclusions: Normal colonoscopy to the cecum. Plan: Repeat colonoscopy in 10 years, sooner if clinically indicated. Signed electronically: Lee Conley M.D.
[2019-06-01 13:33] VITALS: BP 125/71
--- NOTE | 2019-06-02 13:20 | Post Anesthesia Evaluation ---
- Post Anesthesia Evaluation Patient Participated: Yes Airway Patent: Yes Stable Respiratory Function: Yes Nausea/Vomiting: No Temp > 96.8F: Yes Pain Manageable: Yes Adequeate Hydration: Yes Anesthesia Complications: No Block Receding Appropriately: Not Applicable Patient on Ventilator: No
== END 2019-06-01 10:49 | disposition home or self-care (01) ==
LOC: GIO 10:48
PROVIDERS: ATTEND Internal Medicine Gastroenterology
DX: R10.9 Unspecified abdominal pain (principal); R14.0 Abdominal distension (gaseous); J45.909 Unspecified asthma, uncomplicated; K21.9 Gastro-esophageal reflux disease without esophagitis; Z79.899 Other long term (current) drug therapy; Z88.5 Allergy status to narcotic agent; Z88.2 Allergy status to sulfonamides; Z87.19 Personal history of other diseases of the digestive system; Z98.51 Tubal ligation status; Z98.890 Other specified postprocedural states
CPT/HCPCS: 45378; 81025; J2704; J7030

== ENCOUNTER 2019-10-17 12:07 | Emergency (ER) | payer BC ==
--- NOTE | 2019-10-17 12:57 | Event Note ---
ED Screening Note ED Screening Note: states that her face was swelling, states she has been on steroids states it began 10/11/2019 states she still feels like she has swelling/tingling +nausea after taking steroids no v/d no urinary sx no vision changes PMHx GERD, asthma allergy: codine, sulfa, shrimp This initial assessment/diagnostic orders/clinical plan/treatment(s) is/are subject to change based on patients health status, clinical progression and re- assessment by fellow clinical providers in the ED. Further treatment and workup at subsequent clinical providers discretion. Patient/guardian urged not to elope from the ED as their condition may be serious if not clinically assessed and managed.
--- NOTE | 2019-10-17 14:25 | Emergency Department Report ---
ED General Adult HPI - General Chief complaint: Nausea/Vomiting/Diarrhea Stated complaint: SWOLLEN FACE Time Seen by Provider: 10/17/19 12:54 Source: patient Mode of arrival: Ambulatory Limitations: No Limitations - History of Present Illness Initial comments: This is a 53-year-old female nontoxic, well nourished in appearance, no acute signs of distress presents to the ED with c/o of acute left frontal scalp pain and swelling x few days. Stated has been taking Prednisone by PCP. Stated has some nausea without vomiting. Patient denies thunderclap headache. Patient denies any radiation of pain. Patient denies any head trauma. Patient denies a ny visual changes. Patient denies worse headache. Denies abrupt onset of visual disturbances or mononuclear visual loss. patient denies any numbness, tingling, fever, chills, nausea, vomiting, chest pain, shortness of breath, stiff neck. Patient denies facial drooping or one sided weakness. Patient stated allergies to codeine and sulfa. -: days(s) Location: head Radiation: non-radiation Severity scale (0 -10): 3 Quality: aching Consistency: constant Improves with: none Worsens with: none Associated Symptoms: headaches. denies: confusion, chest pain, cough, diaph oresis, fever/chills, loss of appetite, malaise, nausea/vomiting, rash, seizure, shortness of breath, syncope, weakness Treatments Prior to Arrival: other (prednisone) - Related Data Home Medications Medication Instructions Recorded Confirmed Last Taken Fluticasone Propion/Salmeterol 1 each IH BID 05/10/19 06/01/19 05/29/19 [Fluticasone-Salmeterol 250-50] ALBUTEROL Inhaler (OR & NICU) 2 puff INHALATION PRN PRN 06/01/19 06/01/19 05/18/19 Advair Diskus 250-50 mcg 1 puff INHALATION BID 06/01/19 06/01/19 05/29/19 NexIUM 40 mg PO DAILY 06/01/19 06/01/19 05/29/19 Previous Rx's Medication Instructions Recorded Last Taken Type Pantoprazole [Protonix TAB] 40 mg PO QDAY #30 tablet 05/19/19 05/29/19 Rx Allergies Allergy/AdvReac Type Severity Reaction Status Date / Time codeine Allergy hallucinati Verified 05/26/14 13:14 ons shrimp Allergy Hives Verified 05/17/19 20:12 Sulfa (Sulfonamide Allergy Rash Verified 05/26/14 13:13 Antibiotics) ED Review of Systems ROS: Stated complaint: SWOLLEN FACE Other details as noted in HPI Constitutional: denies: chills, fever Eyes: denies: eye pain, eye discharge, vision change ENT: denies: ear pain, throat pain Respiratory: denies: cough, shortness of breath, wheezing Cardiovascular: denies: chest pain, palpitations Endocrine: no symptoms reported Gastrointestinal: denies: abdominal pain, nausea, diarrhea Genitourinary: denies: urgency, dysuria, discharge Musculoskeletal: denies: back pain, joint swelling, arthralgia Skin: denies: rash, lesions Neurological: headache. denies: weakness, paresthesias Psychiatric: denies: anxiety, depression Hematological/Lymphatic: denies: easy bleeding, easy bruising ED Past Medical Hx - Past Medical History Previous Medical History?: Yes Hx Hypertension: No Hx GERD: Yes Hx Asthma: Yes - Surgical History Past Surgical History?: Yes Hx Breast Surgery: Yes (left breast.) - Social History Smoking Status: Never Smoker Substance Use Type: None - Medications Home Medications: Home Medications Medication Instructions Recorded Confirmed Last Taken Type Fluticasone Propion/Salmeterol 1 each IH BID 05/10/19 06/01/19 05/29/19 History [Fluticasone-Salmeterol 250-50] Pantoprazole [Protonix TAB] 40 mg PO QDAY #30 tablet 05/19/19 06/01/19 05/29/19 Rx ALBUTEROL Inhaler (OR & NICU) 2 puff INHALATION PRN PRN 06/01/19 06/01/19 05/18/19 History Advair Diskus 250-50 mcg 1 puff INHALATION BID 06/01/19 06/01/19 05/29/19 History NexIUM 40 mg PO DAILY 06/01/19 06/01/19 05/29/19 History ED Physical Exam - General Limitations: No Limitations General appearance: alert, in no apparent distress - Head Head exam: Present: atraumatic, normocephalic - Expanded Head Exam Expanded 1 - slight swelling noted here - Eye Eye exam: Present: normal appearance, PERRL, EOMI Pupils: Present: normal accommodation - ENT ENT exam: Present: normal exam, normal orophraynx, other (uvula midline. no swelling. no angioedema. ) - Neck Neck exam: Present: normal inspection, full ROM. Absent: tenderness, meningismus, lymphadenopathy - Respiratory Respiratory exam: Present: normal lung sounds bilaterally. Absent: respiratory distress, wheezes, rales, rhonchi, stridor, chest wall tenderness, accessory muscle use, decreased breath sounds, prolonged expiratory - Cardiovascular Cardiovascular Exam: Present: regular rate, normal rhythm, normal heart sounds. Absent: bradycardia, tachycardia, irregular rhythm, systolic murmur, diastolic murmur, rubs, gallop - Extremities Exam Extremities exam: Present: full ROM - Back Exam Back exam: Present: full ROM - Neurological Exam Neurological exam: Present: alert, oriented X3, normal gait - Expanded Neurological Exam Expanded Patient oriented to: Present: person, place, time Cranial nerves: EOM's Intact: Normal, Facial Sensation: Normal Cerebellar function: Finger to Nose: Normal Motor strength exam: RUE: 5, LUE: 5, RLE: 5, LLE: 5 Best Eye Response (Faisal): (4) open spontaneously Best Motor Response (Faisal): (6) obeys commands Best Verbal Response (Faisal): (5) oriented [place]que[place] Total: 15 - Psychiatric Psychiatric exam: Present: normal affect, normal mood - Skin Skin exam: Present: warm, dry, intact, normal color. Absent: rash ED Course Vital Signs 10/17/19 10/17/19 13:14 16:02 Temperature 98.6 F 98.0 F Pulse Rate 73 66 Respiratory 18 18 Rate Blood Pressure 138/75 Blood Pressure 143/81 [Left] O2 Sat by Pulse 98 100 Oximetry - Reevaluation(s) Reevaluation #1: 10/17/19 14:38 Patient is speaking in full sentences with no signs of distress noted. ED Medical Decision Making - Lab Data Result diagrams: 10/17/19 15:05 10/17/19 15:05 - Medical Decision Making This is a 53-year-old female that presents with left temporalis muscle inflammation. Patient is stable and was examined by me. Labs are unremarkable. CTA of head has been obtained and dictated by radiologist. Patient was instructed to follow-up with a primary care doctor in 3-5 days or if symptoms worsen and continue return to emergency room as soon as possible. At time of discharge, the patient does not seem toxic or ill in appearance. No acute signs of distress noted. Patient agrees to discharge treatment plan of care. No further questions noted by the patient. - Differential Diagnosis giant cell arthritis, muscle strain, headache Critical care attestation.: If time is entered above; I have spent that time in minutes in the direct care of this critically ill patient, excluding procedure time. ED Disposition Clinical Impression: Temporal headache Disposition: DC-01 TO HOME OR SELFCARE Is pt being admited?: No Does the pt Need Aspirin: No Condition: Stable Additional Instructions: Follow-up with a primary care doctor in 3-5 days or if symptoms worsen and continue return to emergency room as soon as possible. Referrals: PRIMARY MD PRESLEY [Primary Care Provider] - 3-5 Days ISAEL CAMEJO MD [Staff Physician] - 3-5 Days [facility] [Outside] - 3-5 Days Forms: Work/School Release Form(ED)
[2019-10-17 15:20] LABS: Basophils % (Auto) 0.4 % (0.0-1.8); Hematocrit 42.3 % (30.3-42.9); Hemoglobin 13.6 gm/dl (10.1-14.3); Lymphocytes % (Auto) 13.7 % (13.4-35.0); Mean Corpuscular HGB Conc 32 % (30-34); Mean Corpuscular Volume 92 fl (79-97); Monocytes # (Auto) 0.3 K/mm3 (0.0-0.8); Monocytes % (Auto) 4.6 % (0.0-7.3); Platelet Count 345 K/mm3 (140-440); Red Cell Distribution Width 13.1 % (13.2-15.2)
[2019-10-17 15:39] LABS: BUN/Creatinine Ratio 20; Blood Urea Nitrogen 14 mg/dL (7-17); Calcium 9.5 mg/dL (8.4-10.2); Hemolysis Index 6
[2019-10-17 15:40] LABS: Erythrocyte Sedimentation Rate 22 mm/Hr (0-20)
[2019-10-17 16:03] VITALS: BP 143/81
--- NOTE | 2019-10-17 17:01 | Cat Scan Report ---
CTA head with intravenous contrast CLINICAL HISTORY: Left-sided temporal swelling and pain TECHNIQUE: 0.625 mm thick contiguous axial scans were obtained from the skull base to the skull vertex during ra pid bolus administration of intravenous contrast material. Multiplanar reconstructions were produced in the coronal and sagittal planes. In addition 3 plane MIP instructions were produced and reviewed f or this report. The axial source images and reconstructed images were reviewed for this report. All CT scans at this location are performed using CT dose reduction for ALARA by means of automated e xposure control. FINDINGS: There is enlargement of the left temporalis and masseter muscles. This study includes the mandibles d own to the level of the the mandibular foramina. The superior and inferior alveolar ridges are exclud ed. Therefore, the possibility of odontogenic infection cannot be evaluated. Enlarged left masseter m uscle is not included in its entirety. Enlargement of the left masseter and temporalis muscles could be seen in the setting of myositis. Possibility of diabetic myonecrosis could also be considered. Mus cles are diffusely enlarged and slightly decreased attenuation with no definite focal abnormalities i dentified within the muscles. The absence of inflammatory changes within the adjacent fat make bacter ial infection unlikely. Further evaluation with CT facial bones is suggested to include a lower evalu ation of the entirety of the masseter muscles and to exclude the possibility of odontogenic infection as a source of inflammatory or infectious myositis in this case. Paranasal sinuses and mastoid air cells are free from inflammatory mucosal disease. Middle ear caviti es and external auditory canals have a normal appearance. No abnormalities are seen on evaluation of the orbits. Evaluation of the intracranial structures reveals no abnormality. Ventricles and cortical sulci are n ormal in size and shape. There is no mass effect. No evidence of intracranial hemorrhage or extra-axi al fluid collection is seen. The caliber of the intracranial vessels is normal throughout. There is no indication of intracranial stenosis or large vessel occlusion. There is no indication of vasculitis. There is no evidence of aneurysm or other vascular malformation. IMPRESSION: 1. No vascular abnormalities are identified on CTA head. 2. There is a diffuse enlargement of the left masseter and temporalis muscles as described above. Ple ase refer to the above discussion. CONTRAST DOSE REPORT: Omnipaque 350: 100 ml administered intravenously. Signer Name: Juan Goyal MD Signed: 10/17/2019 4:56 PM Workstation Name: [id number]
== END 2019-10-17 17:59 | disposition home or self-care (01) ==
LOC: ED 12:07
DX: R51 Headache (principal); R22.0 Localized swelling, mass and lump, head; R11.0 Nausea; J45.909 Unspecified asthma, uncomplicated; K21.9 Gastro-esophageal reflux disease without esophagitis; Z88.6 Allergy status to analgesic agent; Z88.2 Allergy status to sulfonamides; Z91.013 Allergy to seafood; Z79.899 Other long term (current) drug therapy; Z98.890 Other specified postprocedural states
CPT/HCPCS: 36415; 70496; 80048; 85025; 85652; 86140; 99284; Q9967

== ENCOUNTER 2019-11-23 10:25 | Outpatient (CLI) | payer BC ==
[2019-11-23 13:06] LABS: Hematocrit 34.3 % (30.3-42.9); Hemoglobin 11.7 gm/dl (10.1-14.3); Mean Corpuscular HGB Conc 34 % (30-34); Mean Corpuscular Volume 91 fl (79-97); Platelet Count 270 K/mm3 (140-440); Red Blood Count 3.77 M/mm3 (3.65-5.03); Red Cell Distribution Width 12.5 % (13.2-15.2)
== END 2019-11-23 10:26 | disposition home or self-care (01) ==
LOC: LAB 10:25
PROVIDERS: ATTEND Obstetrics & Gynecology
DX: D25.1 Intramural leiomyoma of uterus (principal); N92.1 Excessive and frequent menstruation with irregular cycle
CPT/HCPCS: 36415; 85027

== ENCOUNTER 2020-06-01 08:19 | Outpatient (CLI) | payer BC ==
--- NOTE | 2020-06-01 10:30 | Mammography Report ---
DIGITAL SCREENING MAMMOGRAM WITH CAD, 06/01/2020 INDICATION: Routine screening mammography. SCREENING MAMMOGRAM TECHNIQUE: Digital bilateral 2D mammography was obtained in the craniocaudal and mediolateral obliq ue projections. This examination was interpreted with the benefit of Computer-Aided Detection analysi s. COMPARISON: 04/20/2019 FINDINGS: Breast Density: The breasts are heterogeneously dense, which may obscure small masses. There is no evidence of dominant mass, suspicious calcifications or architectural distortion in eithe r breast. Right scar is stable. IMPRESSION: No evidence of malignancy Follow up recommendation: Routine yearly BI-RADS Category 2: Benign. A "normal" or negative report should not discourage follow up or biopsy of a clinically significant f inding. A written summary of these findings will be mailed to the patient. The patient will be entered into a mammography reporting system which will generate a reminder letter for the patient's next appointmen t at the appropriate interval. The [employer] recommends yearly mammograms starting at age 40 and continuing as l nelly as a woman is in good health. Breast MRI is recommended for women with an approximate 20-25% or greater lifetime risk of breast cancer, including women with a strong family history of breast or ova amy cancer or who have been treated for Hodgkin's disease. Signer Name: Marco Liang MD Signed: 06/01/2020 10:25 AM Workstation Name: [id number]
== END 2020-06-01 08:20 | disposition home or self-care (01) ==
LOC: MAMMO 08:19
PROVIDERS: ATTEND Obstetrics & Gynecology
DX: Z12.31 Encounter for screening mammogram for malignant neoplasm of breast (principal)
CPT/HCPCS: 77067

== ENCOUNTER 2020-08-30 11:55 | Outpatient (CLI) | payer BC ==
[2020-08-30 16:59] LABS: Bacteria,Urine 1+ /HPF (Negative); Bilirubin,Urine NEG (Negative); Blood,Urine NEG (Negative); Color,Urine Colorless (Yellow); Protein,Urine <15 mg/dL mg/dL (Negative); Urobilinogen,Urine < 2.0 mg/dL (<2.0)
[2020-08-30 17:02] LABS: Hemoglobin 11.7 gm/dl (10.1-14.3); Mean Corpuscular HGB Conc 33 % (30-34); Mean Corpuscular Volume 93 fl (79-97); Platelet Count 292 K/mm3 (140-440); Red Blood Count 3.87 M/mm3 (3.65-5.03); Red Cell Distribution Width 13.9 % (13.2-15.2)
[2020-08-30 17:16] LABS: Alanine Aminotransferase 15 units/L (7-56); Albumin 3.5 g/dL (3.9-5); Blood Urea Nitrogen 9 mg/dL (7-17); Calcium 8.8 mg/dL (8.4-10.2); Chol/HDL Ratio 3.04 %; HDL Cholesterol 61 mg/dL (40-59); Hemolysis Index 4; LDL Cholesterol,Direct 118 mg/dL (50-130)
[2020-08-30 17:19] LABS: BUN/Creatinine Ratio 13
== END 2020-08-30 11:56 | disposition home or self-care (01) ==
LOC: LAB 11:55
DX: J45.909 Unspecified asthma, uncomplicated (principal); R53.83 Other fatigue; Z20.828 Contact with and (suspected) exposure to other viral communicable diseases
CPT/HCPCS: 36415; 80053; 80061; 81001; 84443; 85027

== ENCOUNTER 2020-09-07 15:55 | Outpatient (CLI) | payer BC ==
--- NOTE | 2020-09-07 17:08 | XRay Report ---
CHEST 2 VIEWS INDICATION / CLINICAL INFORMATION: BRONCHITIS/ASTHMA. COMPARISON: 05/19/2019 FINDINGS: SUPPORT DEVICES: None. HEART / MEDIASTINUM: No significant abnormality. LUNGS / PLEURA: No significant pulmonary or pleural abnormality. No pneumothorax. ADDITIONAL FINDINGS: No significant additional findings. IMPRESSION: 1. No acute findings. Signer Name: Bobo Walden MD Signed: 09/07/2020 5:04 PM Workstation Name: [id number]
== END 2020-09-07 15:56 | disposition home or self-care (01) ==
LOC: XRAY 15:55
DX: J45.909 Unspecified asthma, uncomplicated (principal); I10 Essential (primary) hypertension; G47.9 Sleep disorder, unspecified; Z68.42 Body mass index [BMI] 45.0-49.9, adult
CPT/HCPCS: 71046

== ENCOUNTER 2020-09-28 10:36 | Outpatient (CLI) | payer BC ==
[2020-09-28 12:39] LABS: Hepatitis C Virus Antibody Non-Reactive (NonReactive)
== END 2020-09-28 10:37 | disposition home or self-care (01) ==
LOC: LAB 10:36
PROVIDERS: ATTEND Obstetrics & Gynecology
DX: Z11.3 Encounter for screening for infections with a predominantly sexual mode of transmission (principal)
CPT/HCPCS: 36415; 86592; 86689; 86706; 86803

== ENCOUNTER 2020-10-13 16:55 | Emergency (ER) | payer BC ==
[2020-10-13 17:25] VITALS: BP 137/85
--- NOTE | 2020-10-13 17:30 | Emergency Department Report ---
ED Extremity Problem HPI - General Chief complaint: Extremity Injury, Lower Stated complaint: LT LEG SWOLLEN Source: patient Mode of arrival: Ambulatory Limitations: No Limitations - History of Present Illness Initial comments: 54-year-old -Polish female presents to the emergency room complaining of left upper and lower leg pain with swelling. Patient states that she has a knot on the back of her left calf and she has swelling to her left upper thigh. She was seen by her CNC SUPERVISOR and they recommend for her to follow-up at the ER. Patient denies any recent travels denies any hormone replacement no cancer. MD Complaint: extremity pain, extremity swelling Location: left, lower extremity History of Same: No -: Yes myalgia Severity scale (0 -10): 6 Quality: aching Consistency: intermittent Improves with: nothing Associated Symptoms: denies other symptoms - Related Data Home Medications Medication Instructions Recorded Confirmed Last Taken Fluticasone Propion/Salmeterol 1 each IH BID 05/10/19 06/01/19 05/29/19 [Fluticasone-Salmeterol 250-50] ALBUTEROL Inhaler (OR & NICU) 2 puff INHALATION PRN PRN 06/01/19 06/01/19 05/18/19 Advair Diskus 250-50 mcg 1 puff INHALATION BID 06/01/19 06/01/19 05/29/19 NexIUM 40 mg PO DAILY 06/01/19 06/01/19 05/29/19 Previous Rx's Medication Instructions Recorded Last Taken Type Pantoprazole [Protonix TAB] 40 mg PO QDAY #30 tablet 05/19/19 05/29/19 Rx Allergies Allergy/AdvReac Type Severity Reaction Status Date / Time codeine Allergy hallucinati Verified 10/14/20 08:34 ons shrimp Allergy Hives Verified 10/14/20 08:34 Sulfa (Sulfonamide Allergy Rash Verified 10/14/20 08:34 Antibiotics) ED Review of Systems ROS: Stated complaint: LT LEG SWOLLEN Other details as noted in HPI Comment: All other systems reviewed and negative ED Past Medical Hx - Past Medical History Previous Medical History?: Yes Hx Hypertension: No Hx GERD: Yes Hx Asthma: Yes - Surgical History Past Surgical History?: Yes Hx Breast Surgery: Yes (left breast.) - Social History Smoking Status: Never Smoker Substance Use Type: None - Medications Home Medications: Home Medications Medication Instructions Recorded Confirmed Last Taken Type Fluticasone Propion/Salmeterol 1 each IH BID 05/10/19 06/01/19 05/29/19 History [Fluticasone-Salmeterol 250-50] Pantoprazole [Protonix TAB] 40 mg PO QDAY #30 tablet 05/19/19 06/01/19 05/29/19 Rx ALBUTEROL Inhaler (OR & NICU) 2 puff INHALATION PRN PRN 06/01/19 06/01/19 05/18/19 History Advair Diskus 250-50 mcg 1 puff INHALATION BID 06/01/19 06/01/19 05/29/19 History NexIUM 40 mg PO DAILY 06/01/19 06/01/19 05/29/19 History ED Physical Exam - General Limitations: No Limitations General appearance: alert, in no apparent distress - Head Head exam: Present: atraumatic, normocephalic - Eye Eye exam: Present: normal appearance - ENT ENT exam: Present: mucous membranes moist - Neck Neck exam: Present: normal inspection, full ROM - Respiratory Respiratory exam: Present: accessory muscle use - Cardiovascular Cardiovascular Exam: Present: regular rate, normal rhythm. Absent: systolic murmur, diastolic murmur, rubs, gallop - Expanded Lower Extremity Exam Left Upper Leg exam: Present: full ROM. Absent: tenderness, swelling Knee exam: Present: normal inspection, full ROM. Absent: tenderness Lower Leg exam: Present: full ROM. Absent: swelling, palpable cord, Bolivar's sign Ankle exam: Present: normal inspection Foot/Toe exam: Present: normal inspection Gait: Positive: observed and normal - Back Exam Back exam: Present: normal inspection, full ROM - Neurological Exam Neurological exam: Present: alert, oriented X3, normal gait - Psychiatric Psychiatric exam: Present: normal affect, normal mood - Skin Skin exam: Present: warm, dry, intact, normal color. Absent: rash ED Course Vital Signs 10/13/20 17:23 Temperature 98.3 F Pulse Rate 83 Respiratory 18 Rate Blood Pressure 137/85 O2 Sat by Pulse 100 Oximetry ED Medical Decision Making - Medical Decision Making 54-year-old -Polish female presents to the emergency room complaining of left upper and lower leg pain with swelling. Patient states that she has a knot on the back of her left calf and she has swelling to her left upper thigh. She was seen by her CNC SUPERVISOR and they recommend for her to follow-up at the ER. Patient denies any recent travels denies any hormone replacement no cancer. Discussed with patient that she will need to come back to ER to have an ultrasound done of her left leg. Patient declined having lab work done as I discussed needed to check her kidney function and liver function before our prophylactically start her on Eliquis. Patient states she just wants to leave and she will come back tomorrow to have her ultrasound done. Critical care attestation.: If time is entered above; I have spent that time in minutes in the direct care of this critically ill patient, excluding procedure time. ED Disposition Clinical Impression: Leg pain, left Disposition: DC-01 TO HOME OR SELFCARE Is pt being admited?: No Does the pt Need Aspirin: No Condition: Stable Additional Instructions: You will need to come back to ER to have an ultrasound done of her left leg. Tylenol or ibuprofen as needed for pain management. Referrals: EAN RIOS MD [Primary Care Provider] - 3-5 Days
== END 2020-10-13 22:08 | disposition home or self-care (01) ==
LOC: ED 16:55
DX: M79.605 Pain in left leg (principal); K21.9 Gastro-esophageal reflux disease without esophagitis; J45.909 Unspecified asthma, uncomplicated; Z79.899 Other long term (current) drug therapy; Z88.2 Allergy status to sulfonamides; Z91.013 Allergy to seafood; Z88.6 Allergy status to analgesic agent
CPT/HCPCS: 99282

== ENCOUNTER 2020-10-14 08:24 | Emergency (ER) | payer BC ==
[2020-10-14 08:40] VITALS: BP 125/84
--- NOTE | 2020-10-14 09:44 | Emergency Department Report ---
ED General Adult HPI - General Chief complaint: Extremity Injury, Lower Stated complaint: LEFT LEG SWOLLEN Time Seen by Provider: 10/14/20 08:56 Source: patient Mode of arrival: Ambulatory Limitations: No Limitations - History of Present Illness Initial comments: This is a 54-year-old female that was seen by the midlevel practitioner on the . It was recommended that she come back for an ultrasound: Initial comments: 54-year-old -[place] female presents to the emergency room complaining of left upper and lower leg pain with swelling. Patient states that she has a knot on the back of her left calf and she has swelling to her left upper thigh. She was seen by her FOOD AND BEVERAGE MANAGER and they recommend for her to follow-up at the ER. Patient denies any recent travels denies any hormone replacement no cancer. MD Complaint: extremity pain, extremity swelling Patient tells me that she has felt some swelling of her left leg from her L leg up to her thigh. She has some knee discomfort. She states that she fell 2 weeks ago but did not injure her left knee. She does not report any history of arthritis. She did not have any significant right knee injury or other injury at the time either. She has had no recent travel. She denies any respiratory symptoms. She requests to see a physician today. -: Gradual, days(s), week(s) Location: left, lower extremity Radiation: non-radiation Quality: aching Consistency: intermittent Improves with: none Worsens with: none Associated Symptoms: denies other symptoms - Related Data Home Medications Medication Instructions Recorded Confirmed Last Taken Fluticasone Propion/Salmeterol 1 each IH BID 05/10/19 06/01/19 05/29/19 [Fluticasone-Salmeterol 250-50] ALBUTEROL Inhaler (OR & NICU) 2 puff INHALATION PRN PRN 06/01/19 06/01/19 05/18/19 Advair Diskus 250-50 mcg 1 puff INHALATION BID 06/01/19 06/01/19 05/29/19 NexIUM 40 mg PO DAILY 06/01/19 06/01/19 05/29/19 Previous Rx's Medication Instructions Recorded Last Taken Type Pantoprazole [Protonix TAB] 40 mg PO QDAY #30 tablet 05/19/19 05/29/19 Rx Allergies Allergy/AdvReac Type Severity Reaction Status Date / Time codeine Allergy hallucinati Verified 10/14/20 08:34 ons shrimp Allergy Hives Verified 10/14/20 08:34 Sulfa (Sulfonamide Allergy Rash Verified 10/14/20 08:34 Antibiotics) ED Review of Systems ROS: Stated complaint: LEFT LEG SWOLLEN Other details as noted in HPI Constitutional: denies: chills, fever Eyes: denies: eye pain, vision change ENT: denies: ear pain, throat pain Respiratory: denies: cough, shortness of breath Cardiovascular: denies: chest pain, palpitations Endocrine: no symptoms reported Gastrointestinal: denies: abdominal pain, vomiting Genitourinary: denies: urgency, dysuria Musculoskeletal: as per HPI Skin: denies: rash, lesions Neurological: denies: headache, weakness, paresthesias Psychiatric: denies: anxiety, depression Hematological/Lymphatic: denies: easy bleeding, easy bruising ED Past Medical Hx - Past Medical History Hx Hypertension: No Hx GERD: Yes Hx Asthma: Yes - Surgical History Hx Breast Surgery: Yes (left breast.) - Social History Smoking Status: Never Smoker Substance Use Type: None - Medications Home Medications: Home Medications Medication Instructions Recorded Confirmed Last Taken Type Fluticasone Propion/Salmeterol 1 each IH BID 05/10/19 06/01/19 05/29/19 History [Fluticasone-Salmeterol 250-50] Pantoprazole [Protonix TAB] 40 mg PO QDAY #30 tablet 05/19/19 06/01/19 05/29/19 Rx ALBUTEROL Inhaler (OR & NICU) 2 puff INHALATION PRN PRN 06/01/19 06/01/19 05/18/19 History Advair Diskus 250-50 mcg 1 puff INHALATION BID 06/01/19 06/01/19 05/29/19 History NexIUM 40 mg PO DAILY 06/01/19 06/01/19 05/29/19 History ED Physical Exam - General Limitations: Physical Limitation General appearance: alert, in no apparent distress, obese - Head Head exam: Present: atraumatic, normocephalic - Eye Eye exam: Present: normal appearance. Absent: scleral icterus - ENT ENT exam: Present: mucous membranes moist - Neck Neck exam: Present: normal inspection - Respiratory Respiratory exam: Present: normal lung sounds bilaterally. Absent: respiratory distress - Cardiovascular Cardiovascular Exam: Present: regular rate, normal rhythm. Absent: systolic murmur, diastolic murmur, rubs, gallop - GI/Abdominal GI/Abdominal exam: Present: soft, normal bowel sounds. Absent: distended - Extremities Exam Extremities exam: Present: normal inspection, other (Crepitus on range of motion of the left knee which is essentially full and otherwise nontender). Absent: full ROM, tenderness (I did not appreciate any differential swelling or quarter tenderness), normal capillary refill, pedal edema, calf tenderness - Back Exam Back exam: Present: normal inspection - Neurological Exam Neurological exam: Present: alert, oriented X3, CN II-XII intact. Absent: motor sensory deficit - Psychiatric Psychiatric exam: Present: normal affect, normal mood - Skin Skin exam: Present: warm, dry, intact, normal color. Absent: rash ED Course Vital Signs 10/14/20 08:37 Temperature 98.5 F Pulse Rate 76 Respiratory 20 Rate Blood Pressure 125/84 O2 Sat by Pulse 98 Oximetry ED Medical Decision Making - Radiology Data Radiology results: report reviewed Both knee x-ray and Doppler no acute process per radiologist Critical care attestation.: If time is entered above; I have spent that time in minutes in the direct care of this critically ill patient, excluding procedure time. ED Disposition Clinical Impression: Musculoskeletal pain of left lower extremity Disposition: - TO HOME OR SELFCARE Is pt being admited?: No Does the pt Need Aspirin: No Condition: Stable Additional Instructions: Follow-up with primary care physician. Advil or Motrin [id number] as needed for pain. Referrals: EAN RIOS MD [Primary Care Provider] - 3-5 Days Time of Disposition: 10:49
--- NOTE | 2020-10-14 09:50 | XRay Report ---
LEFT KNEE 2 VIEWS INDICATION / CLINICAL INFORMATION: Fall pain COMPARISON: None available. FINDINGS: BONES / JOINT(S): No acute fracture or subluxation. No significant arthritis. SOFT TISSUES: No significant abnormality. ADDITIONAL FINDINGS: None. Signer Name: Travis Beard MD Signed: 10/14/2020 9:45 AM Workstation Name: [id number]
--- NOTE | 2020-10-14 10:20 | Vascular Lab Report ---
DUPLEX DOPPLER LOWER EXTREMITY VEINS, LEFT INDICATION / CLINICAL INFORMATION: Leg swelling. TECHNIQUE: Duplex doppler imaging was performed through the veins of the left lower extremity using venous compr ession and other maneuvers. COMPARISON: None available. FINDINGS: LEFT COMMON FEMORAL VEIN: Negative. LEFT FEMORAL VEIN: Negative. LEFT POPLITEAL VEIN: Negative. LEFT CALF VEINS: Negative. ADDITIONAL FINDINGS: None. IMPRESSION: 1. No sonographic evidence for DVT in the left lower extremity. Signer Name: Travis Beard MD Signed: 10/14/2020 10:15 AM Workstation Name: [id number]
== END 2020-10-14 11:39 | disposition home or self-care (01) ==
LOC: ED 08:24
DX: M79.605 Pain in left leg (principal); K21.9 Gastro-esophageal reflux disease without esophagitis; J45.909 Unspecified asthma, uncomplicated; Z79.899 Other long term (current) drug therapy; Z88.2 Allergy status to sulfonamides; Z88.6 Allergy status to analgesic agent; Z88.8 Allergy status to other drugs, medicaments and biological substances; Z98.890 Other specified postprocedural states

== ENCOUNTER 2021-02-09 16:57 | Emergency (ER) | payer BC ==
--- NOTE | 2021-02-09 21:32 | XRay Report ---
CLINICAL DATA: left knee pain and swelling TECHNICAL DATA: Two views were obtained, AP and lateral FINDINGS: There is no acute fracture or dislocation. The visualized joint spaces are normal. IMPRESSION: No acute radiographic abnormality. Signer Name: Carmine Valera MD Signed: 02/09/2021 9:28 PM Workstation Name: [id number]
--- NOTE | 2021-02-09 21:58 | Vascular Lab Report ---
DUPLEX DOPPLER LOWER EXTREMITY VEINS, LEFT INDICATION / CLINICAL INFORMATION: left thigh pain and swelling. TECHNIQUE: Duplex doppler imaging was performed through the veins of the left lower extremity using venous compr ession and other maneuvers. COMPARISON: None available. FINDINGS: LEFT COMMON FEMORAL VEIN: Negative. LEFT FEMORAL VEIN: Negative. LEFT POPLITEAL VEIN: Negative. LEFT CALF VEINS: Negative. ADDITIONAL FINDINGS: None. IMPRESSION: 1. No sonographic evidence for DVT in the left lower extremity. Signer Name: Carmine Valera MD Signed: 02/09/2021 9:53 PM Workstation Name: [id number]
--- NOTE | 2021-02-09 22:04 | Emergency Department Report ---
ED Extremity Problem HPI - General Chief complaint: Extremity Problem,Nontraumatic Stated complaint: LT HIP/LEG/KNEE SWOLLEN Source: patient Mode of arrival: Ambulatory Limitations: No Limitations - History of Present Illness Initial comments: 55-year-old -[place] female presents to the emergency room complaining of pain and swelling to her left leg after walking and felt a pop. Patient states then her leg started swelling. Patient denies any recent trauma. She states that this happened on Friday she has tried taking ibuprofen heating pad with no relief of pain. Patient reports she has a past medical history of asthma and acid reflux currently taking Advair albuterol and Nexium. MD Complaint: extremity pain, extremity swelling Location: left, lower extremity History of Same: No Radiation: none Severity scale (0 -10): 9 Quality: aching, sharp Consistency: constant Improves with: nothing Worsens with: weight bearing, walking Associated Symptoms: denies other symptoms - Related Data Home Medications Medication Instructions Recorded Confirmed Last Taken Fluticasone Propion/Salmeterol 1 each IH BID 05/10/19 06/01/19 05/29/19 [Fluticasone-Salmeterol 250-50] ALBUTEROL Inhaler (OR & NICU) 2 puff INHALATION PRN PRN 06/01/19 06/01/19 05/18/19 Advair Diskus 250-50 mcg 1 puff INHALATION BID 06/01/19 06/01/19 05/29/19 NexIUM 40 mg PO DAILY 06/01/19 06/01/19 05/29/19 Previous Rx's Medication Instructions Recorded Last Taken Type Pantoprazole [Protonix TAB] 40 mg PO QDAY #30 tablet 05/19/19 05/29/19 Rx Diclofenac Sodium 50 mg PO BID PRN #20 tablet. 02/09/21 Unknown Rx Allergies Allergy/AdvReac Type Severity Reaction Status Date / Time codeine Allergy hallucinati Verified 02/09/21 21:45 ons shrimp Allergy Hives Verified 02/09/21 21:45 Sulfa (Sulfonamide Allergy Rash Verified 02/09/21 21:45 Antibiotics) ED Review of Systems ROS: Stated complaint: LT HIP/LEG/KNEE SWOLLEN Other details as noted in HPI ED Past Medical Hx - Past Medical History Previous Medical History?: Yes Hx Hypertension: No Hx GERD: Yes Hx Asthma: Yes - Surgical History Past Surgical History?: Yes Hx Breast Surgery: Yes (left breast.) - Social History Smoking Status: Never Smoker Substance Use Type: None - Medications Home Medications: Home Medications Medication Instructions Recorded Confirmed Last Taken Type Fluticasone Propion/Salmeterol 1 each IH BID 05/10/19 06/01/19 05/29/19 History [Fluticasone-Salmeterol 250-50] Pantoprazole [Protonix TAB] 40 mg PO QDAY #30 tablet 05/19/19 06/01/19 05/29/19 Rx ALBUTEROL Inhaler (OR & NICU) 2 puff INHALATION PRN PRN 06/01/19 06/01/19 05/18/19 History Advair Diskus 250-50 mcg 1 puff INHALATION BID 06/01/19 06/01/19 05/29/19 History NexIUM 40 mg PO DAILY 06/01/19 06/01/19 05/29/19 History Diclofenac Sodium 50 mg PO BID PRN #20 tablet. 02/09/21 Unknown Rx ED Physical Exam - General Limitations: No Limitations General appearance: alert, in no apparent distress - Head Head exam: Present: atraumatic, normocephalic - Eye Eye exam: Present: normal appearance - ENT ENT exam: Present: normal external ear exam - Neck Neck exam: Present: normal inspection, full ROM - Respiratory Respiratory exam: Present: accessory muscle use - Cardiovascular Cardiovascular Exam: Present: regular rate, normal rhythm. Absent: systolic murmur, diastolic murmur, rubs, gallop - Expanded Lower Extremity Exam Left Hip exam: Present: full ROM. Absent: tenderness, swelling Upper Leg exam: Present: full ROM. Absent: tenderness, swelling Knee exam: Present: full ROM, tenderness. Absent: swelling, dislocation, erythema, effusion Lower Leg exam: Present: normal inspection, full ROM. Absent: tenderness, swelling Ankle exam: Present: full ROM Foot/Toe exam: Present: normal inspection, full ROM Neuro vascular tendon exam: Present: no vascular compromise Gait: Positive: observed and normal - Back Exam Back exam: Present: full ROM - Neurological Exam Neurological exam: Present: alert, oriented X3 - Psychiatric Psychiatric exam: Present: normal affect, normal mood - Skin Skin exam: Present: warm, dry, intact, normal color. Absent: rash ED Course Vital Signs 02/09/21 02/09/21 19:47 21:46 Temperature 98.0 F Pulse Rate 77 78 Respiratory 18 18 Rate Blood Pressure 152/79 Blood Pressure 151/83 [Left] O2 Sat by Pulse 100 100 Oximetry ED Medical Decision Making - Radiology Data Radiology results: report reviewed [address] [address] XRay Report Signed Patient: OSVALDO KEATING MR#: [id number] : 1965 Acct:[id number] Age/Sex: 55 / F ADM Date: 02/09/21 Loc: ED Attending Dr: Ordering Physician: FRANCOISE AVERY Date of Service: 02/09/21 Procedure(s): XR knee 1-2V LT Accession Number(s): [id number] cc: FRANCOISE AVERY Fluoro Time In Minutes: CLINICAL DATA: left knee pain and swelling TECHNICAL DATA: Two views were obtained, AP and lateral FINDINGS: There is no acute fracture or dislocation. The visualized joint spaces are normal. IMPRESSION: No acute radiographic abnormality. Signer Name: Carmine Valera MD Signed: 02/09/2021 9:28 PM Workstation Name: [id number] Transcribed By: WG Dictated By: Carmine Valera MD Electronically Authenticated By: Carmine Valera MD Signed Date/Time: 02/09/212127 DD/ 22 TD/TT: [address] [address] Vascular Lab Report Signed Patient: OSVALDO KEATING MR#: [id number] : 1965 Acct:[id number] Age/Sex: 55 / F ADM Date: 02/09/21 Loc: ED Attending Dr: Ordering Physician: FRANCOISE AVERY Date of Service: 02/09/21 Procedure(s): VL venous duplex LE LT Accession Number(s): [id number] cc: FRANCOISE AVERY DUPLEX DOPPLER LOWER EXTREMITY VEINS, LEFT INDICATION / CLINICAL INFORMATION: left thigh pain and swelling. TECHNIQUE: Duplex doppler imaging was performed through the veins of the left lower extremity using venous compression and other maneuvers. COMPARISON: None available. FINDINGS: LEFT COMMON FEMORAL VEIN: Negative. LEFT FEMORAL VEIN: Negative. LEFT POPLITEAL VEIN: Negative. LEFT CALF VEINS: Negative. ADDITIONAL FINDINGS: None. IMPRESSION: 1. No sonographic evidence for DVT in the left lower extremity. Signer Name: Carmine Valera MD Signed: 02/09/2021 9:53 PM Workstation Name: [id number] Transcribed By: WG Dictated By: Carmine Valera MD Electronically Authenticated By: Carmine Valera MD Signed Date/Time: 02/09/212152 DD/ 52 TD/TT: Print Cancel - Medical Decision Making 55-year-old -[place] female presents to the emergency room complaining of pain and swelling to her left leg after walking and felt a pop. Patient states then her leg started swelling. Patient denies any recent trauma. She states that this happened on Friday she has tried taking ibuprofen ice pad with no relief of pain. Patient reports she has a past medical history of asthma and acid reflux currently taking Advair albuterol and Nexium. X-ray of left knee shows no acute abnormalities, ultrasound of left lower leg shows no evidence of DVT. Discussed with patient to follow-up with her primary care provider. Continue with ibuprofen leg stretches. Critical care attestation.: If time is entered above; I have spent that time in minutes in the direct care of this critically ill patient, excluding procedure time. ED Disposition Clinical Impression: Left anterior knee pain, Swelling of thigh Acute thigh pain Qualifiers: Laterality: left Qualified Code(s): M79.652 - Pain in left thigh Disposition: TO HOME OR SELFCARE Is pt being admited?: No Does the pt Need Aspirin: No Condition: Stable Instructions: Musculoskeletal Pain Additional Instructions: X-ray of knee shows no acute acute abnormality, ultrasound of left thigh shows no evidence of DVT. I recommend continue with ibuprofen do leg stretches and follow-up with your primary care provider. Prescriptions: Diclofenac Sodium 50 mg PO BID PRN #20 tablet.dr VILLALOBOS Reason: Pain , Severe (7-10) Referrals: LEONEL GARCIA MD [Primary Care Provider] - 3-5 Days Forms: Work/School Release Form(ED)
[2021-02-09 22:17] VITALS: BP 151/83
== END 2021-02-09 22:16 | disposition home or self-care (01) ==
LOC: ED 16:57
DX: M79.652 Pain in left thigh (principal); M25.562 Pain in left knee; M79.89 Other specified soft tissue disorders; K21.9 Gastro-esophageal reflux disease without esophagitis; J45.909 Unspecified asthma, uncomplicated; Z79.899 Other long term (current) drug therapy; Z88.2 Allergy status to sulfonamides; Z91.013 Allergy to seafood; Z88.6 Allergy status to analgesic agent; Z98.890 Other specified postprocedural states

== ENCOUNTER 2021-03-01 03:34 | Emergency (ER) | payer BC ==
[2021-03-01 05:53] LABS: Basophils % (Auto) 0.5 % (0.0-1.8); Eosinophils % (Auto) 0.5 % (0.0-4.3); Hematocrit 37.8 % (30.3-42.9); Hemoglobin 12.6 gm/dl (10.1-14.3); Lymphocytes # (Auto) 1.1 K/mm3 (1.2-5.4); Lymphocytes % (Auto) 29.6 % (13.4-35.0); Mean Corpuscular HGB Conc 33 % (30-34); Mean Corpuscular Volume 92 fl (79-97); Monocytes # (Auto) 0.4 K/mm3 (0.0-0.8); Monocytes % (Auto) 9.9 % (0.0-7.3); Platelet Count 243 K/mm3 (140-440)
[2021-03-01 06:04] LABS: Alanine Aminotransferase 16 units/L (7-56); Albumin 3.9 g/dL (3.9-5); BUN/Creatinine Ratio 19; Blood Urea Nitrogen 13 mg/dL (7-17); Calcium 8.8 mg/dL (8.4-10.2); Hemolysis Index 0
--- NOTE | 2021-03-01 06:30 | Emergency Department Report ---
HPI - General Chief Complaint: Weakness Time Seen by Provider: 03/01/21 05:58 - HPI HPI: This is a 55-year-old -[place] female presents to the emergency department with a complaint of a 24-hour history of some dizziness/lightheadedness, feeling off balance, and feeling like she is in a "haze." Patient went to the [facility] yesterday to fill a prescription when all of a sudden she felt like she was about to pass out and became disoriented. She was evaluated by EMS and had a normal Accu-Chek and declined transport to the hospital at that time. Last night the patient says that she got very dizzy when she was getting up to head to the bathroom and felt like she needed assistance from her family. She continues to feel the lightheadedness/dizziness this morning which is what brought her back into the into the emergency department. Since being in the ER the patient says she has developed a slight generalized headache. She denies any vision change but feels like the lights have a "flare" to them. She just complains of generalized weakness. She denies any facial droop, localized or lateralizing weakness, chest pain, numbness or paresthesias. She has not taken anything for symptoms prior to presentation. She has a past medical history of asthma and GERD. She denies any tobacco or illicit drug use. Her PCP is Dr. Dorsey. ED Past Medical Hx - Past Medical History Previous Medical History?: Yes Hx Hypertension: No Hx GERD: Yes Hx Asthma: Yes - Surgical History Past Surgical History?: Yes Hx Breast Surgery: Yes (left breast.) - Social History Smoking Status: Never Smoker Substance Use Type: None - Medications Home Medications: Home Medications Medication Instructions Recorded Confirmed Last Taken Type Fluticasone Propion/Salmeterol 1 each IH BID 05/10/19 06/01/19 05/29/19 History [Fluticasone-Salmeterol 250-50] Pantoprazole [Protonix TAB] 40 mg PO QDAY #30 tablet 05/19/19 06/01/19 05/29/19 Rx ALBUTEROL Inhaler (OR & NICU) 2 puff INHALATION PRN PRN 06/01/19 06/01/19 05/18/19 History Advair Diskus 250-50 mcg 1 puff INHALATION BID 06/01/19 06/01/1905/29/19 History NexIUM 40 mg PO DAILY 06/01/19 06/01/19 05/29/19 History Diclofenac Sodium 50 mg PO BID PRN #20 tablet. 02/09/21 Unknown Rx ED Review of Systems ROS: Stated complaint: WEAKNESS/FEELING FAINT Other details as noted in HPI Comment: All other systems reviewed and negative Constitutional: weakness. denies: fever Eyes: denies: eye pain, vision change ENT: denies: ear pain, throat pain Respiratory: denies: cough, shortness of breath Cardiovascular: denies: chest pain, palpitations Gastrointestinal: denies: abdominal pain, vomiting Genitourinary: denies: dysuria, discharge Musculoskeletal: denies: back pain, arthralgia Skin: denies: rash, lesions Neurological: headache, weakness, other (dizzy/lightheaded). denies: numbness, paresthesias Physical Exam - Physical Exam Vital Signs: Vital Signs 03/01/21 03:48 Temperature 98.0 F Pulse Rate 74 Respiratory 16 Rate Blood Pressure 136/82 O2 Sat by Pulse 98 Oximetry Physical Exam: GENERAL: The patient is well-developed well-nourished. HENT: Normocephalic. Atraumatic. Patient has moist mucous membranes. EYES: Extraocular motions are intact. Mild fatigable horizontal nystagmus. NECK: Supple. Trachea is midline. CHEST/LUNGS: Clear to auscultation. There is no respiratory distress noted. HEART/CARDIOVASCULAR: Regular. There is no tachycardia. There is no murmur. ABDOMEN: Abdomen is soft, nontender. Patient has normal bowel sounds. There is no abdominal distention. SKIN: Skin is warm and dry. NEURO: The patient is awake, alert, and oriented. The patient is cooperative. The patient has no focal neurologic deficits. Normal speech. Cranial nerves II through XII grossly intact. No facial asymmetry. No pronator drift. MUSCULOSKELETAL: There is no tenderness or deformity. There is no limitation range of motion. ED Course Vital Signs 03/01/21 03:48 Temperature 98.0 F Pulse Rate 74 Respiratory 16 Rate Blood Pressure 136/82 O2 Sat by Pulse 98 Oximetry ED Medical Decision Making - Lab Data Result diagrams: 03/01/21 05:25 03/01/21 05:25 Lab Results 03/01/21 03/01/21 03/01/21 Range/Units 05:25 05:25 07:26 WBC 3.7 L (4.5-11.0) K/mm3 RBC 4.10 (3.65-5.03) M/mm3 Hgb 12.6 (10.1-14.3) gm/dl Hct 37.8 (30.3-42.9) % MCV 92 (79-97) fl MCH 31 (28-32) pg MCHC 33 (30-34) % RDW 13.0 L (13.2-15.2) % Plt Count 243 (140-440) K/mm3 Lymph % (Auto) 29.6 (13.4-35.0) % [place] % (Auto) 9.9 H (0.0-7.3) % Eos % (Auto) 0.5 (0.0-4.3) % Baso % (Auto) 0.5 (0.0-1.8) % Lymph # (Auto) 1.1 L (1.2-5.4) K/mm3 [place] # (Auto) 0.4 (0.0-0.8) K/mm3 Eos # (Auto) 0.0 (0.0-0.4) K/mm3 Baso # (Auto) 0.0 (0.0-0.1) K/mm3 Seg Neutrophils % 59.5 (40.0-70.0) % Seg Neutrophils # 2.2 (1.8-7.7) K/mm3 Sodium 140 (137-145) mmol/L Potassium 4.3 (3.6-5.0) mmol/L Chloride 101.5 (98-107) mmol/L Carbon Dioxide 29 (22-30) mmol/L Anion Gap 14 mmol/L BUN 13 (7-17) mg/dL Creatinine 0.7 (0.6-1.2) mg/dL Estimated GFR > 60 ml/min BUN/Creatinine Ratio 19 % Glucose 99 (65-100) mg/dL Calcium 8.8 (8.4-10.2) mg/dL Total Bilirubin 0.50 (0.1-1.2) mg/dL AST 19 (5-40) units/L ALT 16 (7-56) units/L Alkaline Phosphatase 96 (35-129) units/L Ammonia 20.0 L (25-60) umol/L Troponin T (0.00-0.029) ng/mL Total Protein 6.6 (6.3-8.2) g/dL Albumin 3.9 (3.9-5) g/dL Albumin/Globulin Ratio 1.4 % TSH (0.270-4.200) mlU/mL Urine Color (Yellow) Urine Turbidity (Clear) Urine pH (5.0-7.0) Ur Specific [place] (1.003-1.030) Urine Protein (Negative) mg/dL Urine Glucose (UA) (Negative) mg/dL Urine Ketones (Negative) mg/dL Urine Blood (Negative) Urine Nitrite (Negative) Urine Bilirubin (Negative) Urine Urobilinogen (<2.0) mg/dL Ur Leukocyte Esterase (Negative) Urine WBC (Auto) (0.0-6.0) /HPF Urine RBC (Auto) (0.0-6.0) /HPF U Epithel Cells (Auto) (0-13.0) /HPF Urine Bacteria (Auto) (Negative) /HPF 03/01/21 03/01/21 03/01/21 Range/Units 07:26 07:26 Unknown WBC (4.5-11.0) K/mm3 RBC (3.65-5.03) M/mm3 Hgb (10.1-14.3) gm/dl Hct (30.3-42.9) % MCV (79-97) fl MCH (28-32) pg MCHC (30-34) % RDW (13.2-15.2) % Plt Count (140-440) K/mm3 Lymph % (Auto) (13.4-35.0) % [place] % (Auto) (0.0-7.3) % Eos % (Auto) (0.0-4.3) % Baso % (Auto) (0.0-1.8) % Lymph # (Auto) (1.2-5.4) K/mm3 [place] # (Auto) (0.0-0.8) K/mm3 Eos # (Auto) (0.0-0.4) K/mm3 Baso # (Auto) (0.0-0.1) K/mm3 Seg Neutrophils % (40.0-70.0) % Seg Neutrophils # (1.8-7.7) K/mm3 Sodium (137-145) mmol/L Potassium (3.6-5.0) mmol/L Chloride (98-107) mmol/L Carbon Dioxide (22-30) mmol/L Anion Gap mmol/L BUN (7-17) mg/dL Creatinine (0.6-1.2) mg/dL Estimated GFR ml/min BUN/Creatinine Ratio % Glucose (65-100) mg/dL Calcium (8.4-10.2) mg/dL Total Bilirubin (0.1-1.2) mg/dL AST (5-40) units/L ALT (7-56) units/L Alkaline Phosphatase (35-129) units/L Ammonia (25-60) umol/L Troponin T < 0.010 (0.00-0.029) ng/mL Total Protein (6.3-8.2) g/dL Albumin (3.9-5) g/dL Albumin/Globulin Ratio % TSH 1.200 (0.270-4.200) mlU/mL Urine Color Straw (Yellow) Urine Turbidity Clear (Clear) Urine pH 8.0 H (5.0-7.0) Ur Specific [place] 1.005 (1.003-1.030) Urine Protein <15 mg/dl (Negative) mg/dL Urine Glucose (UA) Neg (Negative) mg/dL Urine Ketones Neg (Negative) mg/dL Urine Blood Neg (Negative) Urine Nitrite Neg (Negative) Urine Bilirubin Neg (Negative) Urine Urobilinogen < 2.0 (<2.0) mg/dL Ur Leukocyte Esterase Neg (Negative) Urine WBC (Auto) < 1.0 (0.0-6.0) /HPF Urine RBC (Auto) 1.0 (0.0-6.0) /HPF U Epithel Cells (Auto) < 1.0 (0-13.0) /HPF Urine Bacteria (Auto) 1+ (Negative) /HPF - EKG Data -: EKG Interpreted by Me EKG shows normal: sinus rhythm, axis, intervals (Prolonged OH interval), QRS co mplexes, ST-T waves Rate: bradycardia (58 bpm) - EKG Data When compared to previous EKG there are: no significant change Interpretation: unchanged when compared t (05/17/19) - Radiology Data Radiology results: report reviewed CT head/brain wo con INDICATION: Headache. TECHNIQUE: Routine CT head. All CT scans at this location are performed using CT dose reduction for ALARA by means of automated exposure control. COMPARISON: None. FINDINGS: Intracranial: Lloyd- white matter differentiation is maintained. No intracranial hemorrhage. No extra axial collection. No hydrocephalus. No herniation. Sinuses: Paranasal sinuses and mastoid air cells are essentially clear. Orbits: Globes are intact. Calvarium: No acute fracture. IMPRESSION: 1. No acute intracranial abnormality. - Medical Decision Making This patient presents to the emergency department with a complaint of a 1 to 2- day history of general illness in which the patient says that she feels lightheaded and dizzy and has generalized weakness. On examination the patient does not have any focal, motor or sensory deficits and her cranial nerves are intact. CT scan of the head without contrast does not show any bleed, large vessel occlusion, or any other acute process. EKG did not have any morphology consistent with ST elevation myocardial infarcti on. Patient's labs have been unremarkable including CBC, metabolic panel, normal thyroid function, normal CK level, negative troponin, normal urinalysis. Vital signs have been reassuring throughout her ED course including being afebrile. The patient was given some IV fluid resuscitation for possible dehydration. The patient has been reevaluated multiple times over multiple hours and has remained stable throughout her ED course and feels slightly improved. She has been seen ambulatory in the emergency department and both appears and feels stable. For all these reasons the patient appears safe for discharge home at this time. She has good outpatient follow-up with her PCP. She will return to the emergency department with any return or worsening of her symptoms, new or concerning symptoms not addressed during this emergency department visit, or with any acute distress. Critical Care Time: No Critical care attestation.: If time is entered above; I have spent that time in minutes in the direct care of this critically ill patient, excluding procedure time. ED Disposition Clinical Impression: Generalized weakness, Light-headed feeling, Dizziness Fatigue Qualifiers: Fatigue type: unspecified Qualified Code(s): R53.83 - Other fatigue Disposition: DC-01 TO HOME OR SELFCARE Is pt being admited?: No Condition: Stable Instructions: Near-Syncope, Fatigue, Weakness, Dizziness Additional Instructions: Please follow-up with your primary care physician in the next few days. Return to the emergency department with any worsening of your symptoms, new or concerning symptoms not addressed during this current emergency department visit, or with any acute distress. Referrals: EAN RIOS MD [Referring] - 2-3 Days Time of Disposition: 11:34
--- NOTE | 2021-03-01 06:45 | Cat Scan Report ---
CT head/brain wo con INDICATION: Headache. TECHNIQUE: Routine CT head. All CT scans at this location are performed using CT dose reduction for A DAGO by means of automated exposure control. COMPARISON: None. FINDINGS: Intracranial: Lloyd-white matter differentiation is maintained. No intracranial hemorrhage. No extra a xial collection. No hydrocephalus. No herniation. Sinuses: Paranasal sinuses and mastoid air cells are essentially clear. Orbits: Globes are intact. Calvarium: No acute fracture. IMPRESSION: 1. No acute intracranial abnormality. Signer Name: Colten Meek MD Signed: 03/01/2021 6:41 AM Workstation Name: [id number]
[2021-03-01 08:42] LABS: Bacteria,Urine 1+ /HPF (Negative); Bilirubin,Urine NEG (Negative); Blood,Urine NEG (Negative); Color,Urine Straw (Yellow); Protein,Urine <15 mg/dL mg/dL (Negative); Urobilinogen,Urine < 2.0 mg/dL (<2.0)
[2021-03-01] MEDS ORDERED: SODIUM CHLORIDE 0.9% 1000 ML 1,000 ML IV ONE (09:02)
[2021-03-01 09:10] LABS: WBC,Urine < 1.0 /HPF (0.0-6.0)
[2021-03-01 11:46] VITALS: BP 116/64
--- NOTE | 2021-03-05 17:29 | Electrocardiograph Report ---
[facility] Test Date: 2021-03-01 Test Time: 09:23:54 Pat Name: OSVALDO KEATING Department: Room: Gender: F Net Finisher: CHITRA : 1965 Requested By: CAROL ANN WICK Order Number: [id number] Reading MD: Dorie Taylor Measurements Intervals [place] Rate: 58 P: 39 ND: 215 QRS: 14 QRSD: 88 T: 52 QT: 416 QTc: 409 Interpretive Statements Sinus bradycardia Prolonged ND interval No previous ECG available for comparison Electronically Signed On 03-05-2021 17:29:14 EDT by Dorie Taylor
== END 2021-03-01 11:47 | disposition home or self-care (01) ==
LOC: ED 03:34
DX: R53.83 Other fatigue (principal); R42 Dizziness and giddiness; R53.1 Weakness; K21.9 Gastro-esophageal reflux disease without esophagitis; J45.909 Unspecified asthma, uncomplicated; Z79.899 Other long term (current) drug therapy; Z88.2 Allergy status to sulfonamides; Z88.6 Allergy status to analgesic agent; Z88.8 Allergy status to other drugs, medicaments and biological substances; Z98.890 Other specified postprocedural states
CPT/HCPCS: 36415; 70450; 80053; 81001; 82140; 84443; 84484; 85025; 93005; 96360; 99284; J7030

== ENCOUNTER 2021-03-22 08:54 | Outpatient (CLI) | payer BC | END 2021-03-22 08:55 | disposition home or self-care (01) | LOC: ECHO 08:54 | PROVIDERS: ATTEND Internal Medicine Cardiovascular Disease | DX: I08.8 Other rheumatic multiple valve diseases (principal); R01.1 Cardiac murmur, unspecified | CPT/HCPCS: 93306 ==

== ENCOUNTER 2021-03-27 20:58 | Emergency (ER) | payer BC ==
[2021-03-27 22:39] VITALS: BP 143/82
[2021-03-27] MEDS ORDERED: ASPIRIN 325 MG TAB PO ONE (22:57)
[2021-03-27 23:47] LABS: Basophils % (Auto) 0.4 % (0.0-1.8); Eosinophils % (Auto) 0.1 % (0.0-4.3); Hematocrit 37.8 % (30.3-42.9); Hemoglobin 12.4 gm/dl (10.1-14.3); Lymphocytes % (Auto) 25.5 % (13.4-35.0); Mean Corpuscular HGB Conc 33 % (30-34); Mean Corpuscular Volume 93 fl (79-97); Monocytes # (Auto) 0.5 K/mm3 (0.0-0.8); Monocytes % (Auto) 13.5 % (0.0-7.3); Platelet Count 262 K/mm3 (140-440); Red Blood Count 4.08 M/mm3 (3.65-5.03); Red Cell Distribution Width 12.8 % (13.2-15.2)
--- NOTE | 2021-03-27 23:50 | XRay Report ---
CHEST 2 VIEWS INDICATION / CLINICAL INFORMATION: chest pain, SOB. COMPARISON: 09/07/20 FINDINGS: SUPPORT DEVICES: None. HEART / MEDIASTINUM: No significant abnormality. LUNGS / PLEURA: Slightly suboptimal inspiration on the PA view. Crowding of bronchovascular structure s in the lung bases. No acute airspace disease. No pneumothorax. ADDITIONAL FINDINGS: No significant additional findings. IMPRESSION: 1. No acute findings. Signer Name: Shirlene Mccain MD Signed: 03/27/2021 11:45 PM Workstation Name: [id number]
[2021-03-28 00:09] LABS: Alanine Aminotransferase 21 units/L (7-56); Albumin 4.1 g/dL (3.9-5); BUN/Creatinine Ratio 14; Blood Urea Nitrogen 13 mg/dL (7-17); Calcium 8.8 mg/dL (8.4-10.2); Hemolysis Index 3
[2021-03-28] MEDS ORDERED: dexAMETHasone 20 MG/5 ML VIAL IM ONE (01:09)
[2021-03-28] MEDS ORDERED: ALBUTEROL 2.5 MG/3 ML NEBU IH ONE (01:10)
[2021-03-28] MEDS ORDERED: AZITHROMYCIN 250 MG TAB PO ONE (01:10)
--- NOTE | 2021-03-28 01:51 | Emergency Department Report ---
ED General Adult HPI - General Chief complaint: Chest Pain Stated complaint: WHEEZING, FLU SX,CHEST PAIN, COUGHING Time Seen by Provider: 03/28/21 01:07 Source: patient Mode of arrival: Ambulatory Limitations: No Limitations - History of Present Illness Initial comments: Patient 55-year-old female with a history of asthma and bronchitis who presents for chest pain with dry cough and shortness of breath onset today. Symptoms are rated at 4/10. Patient states out of albuterol inhaler. There is been no fever or chills. No nausea or vomiting. Symptoms are relieved by rest. Symptoms are exacerbated by environmental exposure. - Related Data Home Medications Medication Instructions Recorded Confirmed Last Taken Fluticasone Propion/Salmeterol 1 each IH BID 05/10/19 06/01/19 05/29/19 [Fluticasone-Salmeterol 250-50] ALBUTEROL Inhaler (OR & NICU) 2 puff INHALATION PRN PRN 06/01/19 06/01/19 05/18/19 Advair Diskus 250-50 mcg 1 puff INHALATION BID 06/01/19 06/01/19 05/29/19 NexIUM 40 mg PO DAILY 06/01/19 06/01/19 05/29/19 Previous Rx's Medication Instructions Recorded Last Taken Type Pantoprazole [Protonix TAB] 40 mg PO QDAY #30 tablet 05/19/19 05/29/19 Rx Diclofenac Sodium 50 mg PO BID PRN #20 tablet. 02/09/21 Unknown Rx Albuterol Mdi (or & Nicu Only) 2 puff IH QID PRN #25 vial 03/28/21 Unknown Rx [ProAir HFA Inhaler] Azithromycin 500 mg PO DAILY #5 tablet 03/28/21 Unknown Rx dexAMETHasone [Decadron] 4 mg PO BID 3 Days #6 tablet 03/28/21 Unknown Rx Allergies Allergy/AdvReac Type Severity Reaction Status Date / Time codeine Allergy hallucinati Verified 02/09/21 21:45 ons shrimp Allergy Hives Verified 02/09/21 21:45 Sulfa (Sulfonamide Allergy Rash Verified 02/09/21 21:45 Antibiotics) ED Review of Systems ROS: Stated complaint: WHEEZING, FLU SX,CHEST PAIN, COUGHING Other details as noted in HPI Constitutional: denies: chills, malaise Eyes: denies: eye pain, eye discharge, vision change ENT: denies: ear pain, throat pain Respiratory: cough, shortness of breath, wheezing Cardiovascular: denies: chest pain, palpitations Endocrine: no symptoms reported Gastrointestinal: denies: abdominal pain, nausea, diarrhea Genitourinary: denies: urgency, dysuria, discharge Musculoskeletal: denies: back pain, joint swelling, arthralgia Skin: denies: rash, lesions Neurological: other. denies: headache, weakness, paresthesias, vertigo Psychiatric: denies: anxiety, depression Hematological/Lymphatic: denies: easy bleeding, easy bruising ED Past Medical Hx - Past Medical History Previous Medical History?: Yes Hx Hypertension: No Hx GERD: Yes Hx Asthma: Yes - Surgical History Hx Breast Surgery: Yes (left breast.) - Social History Smoking Status: Never Smoker Substance Use Type: None - Medications Home Medications: Home Medications Medication Instructions Recorded Confirmed Last Taken Type Fluticasone Propion/Salmeterol 1 each IH BID 05/10/19 06/01/19 05/29/19 History [Fluticasone-Salmeterol 250-50] Pantoprazole [Protonix TAB] 40 mg PO QDAY #30 tablet 05/19/19 06/01/19 05/29/19 Rx ALBUTEROL Inhaler (OR & NICU) 2 puff INHALATION PRN PRN 06/01/19 06/01/19 05/18/19 History Advair Diskus 250-50 mcg 1 puff INHALATION BID 06/01/19 06/01/19 05/29/19 History NexIUM 40 mg PO DAILY 06/01/19 06/01/19 05/29/19 History Diclofenac Sodium 50 mg PO BID PRN #20 tablet. 02/09/21 Unknown Rx Albuterol Mdi (or & Nicu Only) 2 puff IH QID PRN #25 vial 03/28/21 Unknown Rx [ProAir HFA Inhaler] Azithromycin 500 mg PO DAILY #5 tablet 03/28/21 Unknown Rx dexAMETHasone [Decadron] 4 mg PO BID 3 Days #6 tablet 03/28/21 Unknown Rx ED Physical Exam - General Limitations: No Limitations General appearance: alert, in no apparent distress - Head Head exam: Present: atraumatic, normocephalic - Eye Eye exam: Present: normal appearance, PERRL, EOMI. Absent: scleral icterus, conjunctival injection, nystagmus Pupils: Present: normal accommodation - ENT ENT exam: Present: normal exam, normal orophraynx, mucous membranes moist, TM's normal bilaterally, normal external ear exam - Neck Neck exam: Present: normal inspection, full ROM. Absent: tenderness, lymphadenopathy, thyromegaly - Respiratory Respiratory exam: Present: chest wall tenderness (right anterior lateral no swelling on echymosis, no step off ). Absent: respiratory distress, wheezes, rales, rhonchi, stridor, prolonged expiratory - Cardiovascular Cardiovascular Exam: Present: regular rate, normal rhythm, normal heart sounds. Absent: systolic murmur, diastolic murmur, rubs, gallop - GI/Abdominal GI/Abdominal exam: Present: soft, normal bowel sounds. Absent: distended, tenderness, guarding, mass, bruit ED Course Vital Signs 03/27/21 22:29 Temperature 98.4 F Pulse Rate 86 Respiratory 20 Rate Blood Pressure 143/82 O2 Sat by Pulse 97 Oximetry ED Medical Decision Making - Lab Data Result diagrams: 03/27/21 23:12 03/27/21 23:12 - EKG Data EKG shows normal: sinus rhythm Rate: normal - EKG Data Interpretation: normal EKG (no STEMI, NSR inaterp by ed adttending. ) - Radiology Data Radiology results: report reviewed, image reviewed INDICATION / CLINICAL INFORMATION: chest pain, SOB. COMPARISON: 09/07/20 FINDINGS: SUPPORT DEVICES: None. HEART / MEDIASTINUM: No significant abnormality. LUNGS / PLEURA: Slightly suboptimal inspiration on the PA view. Crowding of bronchovascular structures in the lung bases. No acute airspace disease. No pneumothorax. ADDITIONAL FINDINGS: No significant additional findings. IMPRESSION: 1. No acute findings. Signer Name: Shirlene Mccain MD Signed: 03/27/2021 11:45 PM Workstation Name: [id number] Transcribed By: DT Dictated By: Immanuel Mccain MD Electronically Authenticated By: Immanuel Mccain MD Signed Date/Time: 03/27/21 3317 DD/ TD/TT: - Medical Decision Making This is likely bronchitis, symptoms improved with medications given in ED., Patient will be DC'd home in stable condition at this time with prescriptions. Patient will follow with primary care doctor in 2 to 3 days. Critical care attestation.: If time is entered above; I have spent that time in minutes in the direct care of this critically ill patient, excluding procedure time. ED Disposition Clinical Impression: Bronchitis Chest pain Qualifiers: Chest pain type: unspecified Qualified Code(s): R07.9 - Chest pain, unspecified Disposition: TO HOME OR SELFCARE Is pt being admited?: No Does the pt Need Aspirin: No Condition: Stable Instructions: Chronic Bronchitis (ED), Nonspecific Chest Pain, Adult Additional Instructions: Take medications as prescribed. Follow-up with primary care doctor in 2 to 3 days. Return to emergency should symptoms worsen. Prescriptions: Azithromycin 500 mg PO DAILY #5 tablet dexAMETHasone [Decadron] 4 mg PO BID 3 Days #6 tablet Albuterol Mdi (or & Nicu Only) [ProAir HFA Inhaler] 2 puff IH QID PRN #25 vial PRN Reason: Shortness Of Breath Referrals: EAN RIOS MD [Primary Care Provider] - 3-5 Days Forms: Work/School Release Form(ED) Time of Disposition: 02:10
--- NOTE | 2021-03-29 10:55 | Electrocardiograph Report ---
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
== END 2021-03-28 02:45 | disposition home or self-care (01) ==
LOC: ED 20:58
DX: J40 Bronchitis, not specified as acute or chronic (principal); K21.9 Gastro-esophageal reflux disease without esophagitis; J45.909 Unspecified asthma, uncomplicated
CPT/HCPCS: 36415; 71046; 80053; 84484; 85025; 93005; 96372; 99284; J1100

== ENCOUNTER 2021-06-27 14:35 | Outpatient (CLI) | payer BC ==
--- NOTE | 2021-06-28 12:26 | Mammography Report ---
DIGITAL SCREENING MAMMOGRAM WITH CAD, 06/28/2021 CLINICAL INFORMATION / INDICATION: Routine screening mammography. TECHNIQUE: Digital bilateral 2D mammography was obtained in the craniocaudal and mediolateral obliqu e projections. This examination was interpreted with the benefit of Computer-Aided Detection analysis . COMPARISON: 04/20/2019 FINDINGS: Breast Density: There are scattered areas of fibroglandular density. No dominant mass, suspicious calcifications, or architectural distortion in either breast. No interval change. IMPRESSION: No mammographic evidence of malignancy. Follow up recommendation: Routine yearly BI-RADS Category 1: Negative. A "normal" or negative report should not discourage follow up or biopsy of a clinically significant f inding. A written summary of these findings will be mailed to the patient. The patient will be entered into a mammography reporting system which will generate a reminder letter for the patient's next appointmen t at the appropriate interval. The [employer] recommends yearly mammograms starting at age 40 and continuing as l nelly as a woman is in good health. Breast MRI is recommended for women with an approximate 20-25% or greater lifetime risk of breast cancer, including women with a strong family history of breast or ova amy cancer or who have been treated for Hodgkin's disease. Signer Name: Tiara Nguyen MD Signed: 06/28/2021 12:22 PM Workstation Name: [id number]
== END 2021-06-27 14:36 | disposition home or self-care (01) ==
LOC: MAMMO 14:35
PROVIDERS: ATTEND Obstetrics & Gynecology
DX: Z12.31 Encounter for screening mammogram for malignant neoplasm of breast (principal)
CPT/HCPCS: 77067

== ENCOUNTER 2021-09-18 11:13 | Outpatient (CLI) | payer BC ==
[2021-09-18 12:26] LABS: Basophils % (Auto) 0.8 % (0.0-1.8); Eosinophils % (Auto) 0.3 % (0.0-4.3); Hematocrit 37.8 % (30.3-42.9); Hemoglobin 11.9 gm/dl (10.1-14.3); Lymphocytes # (Auto) 2.1 K/mm3 (1.2-5.4); Lymphocytes % (Auto) 40.8 % (13.4-35.0); Mean Corpuscular HGB Conc 32 % (30-34); Mean Corpuscular Volume 93 fl (79-97); Monocytes # (Auto) 0.4 K/mm3 (0.0-0.8); Platelet Count 270 K/mm3 (140-440); Red Blood Count 4.06 M/mm3 (3.65-5.03); Red Cell Distribution Width 13.5 % (13.2-15.2)
[2021-09-18 12:56] LABS: ABG Base Excess 2.5 mmol/L (-2.0-3.0); ABG HCO3 27.3 mmol/L (20.0-26.0); ABG Methemoglobin 0.6 % (0.0-1.5); ABG Oxygen Saturation 97.2 % (95.0-99.0); ABG PCO2 42.9 mm Hg; ABG PH 7.421 pH Units (7.350-7.450); ABG PO2 91.3 mm Hg (80.0-90.0)
[2021-09-18 12:59] LABS: Alanine Aminotransferase 13 units/L (7-56); Albumin 3.7 g/dL (3.9-5); Blood Urea Nitrogen 13 mg/dL (7-17); Calcium 8.7 mg/dL (8.4-10.2); HDL Cholesterol 59 mg/dL (40-59); Hemolysis Index 4; LDL Cholesterol,Direct 138 mg/dL (50-130)
[2021-09-18 13:04] LABS: BUN/Creatinine Ratio 19
--- NOTE | 2021-09-19 06:58 | XRay Report ---
CHEST 2 VIEWS INDICATION / CLINICAL INFORMATION: ASTHMA. COMPARISON: 03/27/2021 FINDINGS: SUPPORT DEVICES: None. HEART / MEDIASTINUM: No significant abnormality. LUNGS / PLEURA: No significant pulmonary or pleural abnormality. No pneumothorax. ADDITIONAL FINDINGS: No significant additional findings. IMPRESSION: 1. No acute findings. Signer Name: Smith Ashley MD Signed: 09/19/2021 6:54 AM Workstation Name: [id number]
== END 2021-09-18 11:14 | disposition home or self-care (01) ==
LOC: LAB 11:13
PROVIDERS: ATTEND Internal Medicine
DX: J45.21 Mild intermittent asthma with (acute) exacerbation (principal); J30.9 Allergic rhinitis, unspecified; R06.02 Shortness of breath; J45.909 Unspecified asthma, uncomplicated; Z68.33 Body mass index [BMI] 33.0-33.9, adult
CPT/HCPCS: 36415; 36600; 71046; 80053; 80061; 82785; 82803; 84436; 84443; 85025

== ENCOUNTER 2021-12-25 05:59 | Day surgery (SDC) | payer BC ==
[2021-12-19 10:15] LABS: Hematocrit 39.2 % (30.3-42.9); Hemoglobin 12.9 gm/dl (10.1-14.3); Mean Corpuscular HGB Conc 33 % (30-34); Mean Corpuscular Volume 94 fl (79-97); Platelet Count 250 K/mm3 (140-440); Red Blood Count 4.18 M/mm3 (3.65-5.03); Red Cell Distribution Width 12.7 % (13.2-15.2)
--- NOTE | 2021-12-19 13:15 | Anesthesia Consultation ---
Anesthesia Consult and Med Hx Date of service: 12/25/21 - Airway Anesthetic Teeth Evaluation: Good ROM Head & Neck: Adequate Mental/Hyoid Distance: Adequate Mallampati Class: Class II Intubation Access Assessment: Probably Good - Pulmonary Exam CTA: Yes - Cardiac Exam Cardiac Exam: RRR - Pre-Operative Health Status ASA Pre-Surgery Classification: ASA2 Proposed Anesthetic Plan: General - Pulmonary Hx Smoking: No Hx Asthma: Yes (daily inhaler use) - Cardiovascular System Hx Hypertension: No Hx Coronary Artery Disease: No (neg chest pain work up 2020; nml ST and TTE) Hx Heart Attack/AMI: No Hx Percutaneous Transluminal Coronary Angioplasty (PTCA): No - Central Nervous System CVA: No - Endocrine Hx Renal Disease: No Hx Liver Disease: No Hx Insulin Dependent Diabetes: No Hx Non-Insulin Dependent Diabetes: No Hx Thyroid Disease: No - Other Systems Hx Obesity: Yes (BMI 33) - Additional Comments Anesthesia Medical History Comments: No hx anesthetic complications. Instructed to use albuterol DOS.
--- NOTE | 2021-12-24 19:59 | Short Stay Summary ---
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 History Operations: Tubal Ligation Breast Lumpectomy: (1997) (L) benign Abnormal PAP: negative Infection History HIV Risk Eval: no Hx of STD: None Active Medications (reviewed today): Restasis 0.05% dropperette (cyclosporine) fluticasone propionate 50 mcg/actuation spray,suspension (fluticasone propionate) omega 7-mzx-whq-fish oil 120-180-500 mg capsule (omega 4-muq-oza-fish oil) Centrum Silver 0.4-300-250 mg-mcg-mcg tablet (gfqewqyh-vsf-ye-lycopen-lutein) Advair Diskus 250-50 mcg/dose blister with device (fluticasone propion- salmeterol) loratadine 10 mg tablet (loratadine) esomeprazole magnesium 40 mg capsule,delayed release(DR/EC) (esomeprazole magnesium) albuterol sulfate 90 mcg/actuation HFA aerosol inhaler (albuterol sulfate) Current Allergies (reviewed today): SULFA (Critical) CODEINE (Critical) Past Medical History: Reviewed history from 10/18/2021 and no changes required: Asthma BRCA negative Colonoscopy (05/2019) Normal rescreen [address] Yael Garber Food Allergy: Shrimp Past Surgical History: Reviewed history from 10/18/2021 and no changes required: Tubal Ligation Breast Lumpectomy: (1997) (L) benign Family History Summary: Reviewed history Last on 10/18/2021 and no changes required:12/24/2021 Other Family Member - Has No Family History of Uterine Cancer - Entered On: 10/26/2019 Other Family Member - Has No Family History of Small Bowel Cancer - Entered On: 10/26/2019 Other Family Member - Has No Family History of Stomach Cancer - Entered On: 10/26/2019 Other Family Member - Has No Family History of Pancreatic Cancer - Entered On: 10/26/2019 Other Family Member - Has No Family History of Ovarvian Cancer - Entered On: 10/26/2019 Other Family Member - Has No Family History of Kidney/Urinary Tract Cancer - Entered On: 10/26/2019 Other Family Member - Has No Family History of Spontaneous DVT-PE - Entered On: 10/26/2019 Other Family Member - Has No Family History of Colon Cancer - Entered On: 10/26/2019 Other Family Member - Has No Family History of Brain Cancer - Entered On: 10/26/2019 Other Family Member - Has No Family History of Biliary Tract Cancer - Entered On: 10/26/2019 Mother - Has Family History of Lung Cancer - asbestos exposure - Entered On: 10/26/2019 Father - Has Family History of Prostate Cancer - Entered On: 10/26/2019 Aunt - Has Family History Breast Cancer - several maternal greats - Entered On: 10/26/2019 Niece - Has Family History Breast Cancer - daughter of sister w/ breast ca, dx'd age 29, age 37, BRCA negative - - Entered On: 11/02/2019 Sister - Has Family History Breast Cancer - diagnosed age 32, age 36 - Entered On: 11/02/2019 Social History: Reviewed history from 04/14/2019 and no changes required: Patient is a Smoking History: Patient has never smoked. Risk Factors: Smoked Tobacco Use: Never smoker Smokeless Tobacco Use: Never Passive Smoke Exposure: no HIV High Risk Behavior: no Exercise: yes Times/wk: 3 Type of Exercise: gym Seatbelt Use: 100 % Alcohol Use: no Drug Use: no Previous Tobacco Use: Signed On - 11/01/2021 Smoked Tobacco Use: Never smoker Smokeless Tobacco Use: Never Passive Smoke Exposure: no HIV High Risk Behavior: no Exercise: yes Times/wk: 2 Type of Exercise: gym Seatbelt Use: 100 % Alcohol Use: no Drug Use: no Physical Exam Appearance: well developed, well nourished, no acute distress Other Exams Lungs: no rales, rhonchi, or wheezes Heart: S1, S2, no murmur, rub, or gallop Genitourinary Exam Uterus: deferred for EUA Impression & Recommendations: Problem # 1: Other specified irregular menstruation (HWS19-E36.5) She was unable to tolerated attempt at EMB in the office and now desires to proceed with cervical dilation, hysteroscopy and uterine curettage. Consent reviewed and signed . Possible laparoscopy or laparotomy explained to patient. The risks and alternatives for this surgery were reviewed with the patient. She was informed of the following risks, but not limited to, uterine perforation, possible bleeding, infection, injury to bowel, bladder, ureters or other adjacent organs. The patient was instructed/informed the following: The normal length of hospital stay for this procedure. Nothing to eat or drink after midnight the evening prior to surgery. Pre-op instruction sheets given. Wound care instructions given. Infection precautions reviewed, patient to call for any signs or symptoms of infection. The usual discomforts associated with this procedure were detailed. Proper use of pain medicines was reviewed. Patient was given ample opportunity to have all her questions answered before signing informed consent. Medications Added to Medication List This Visit: 1) Restasis 0.05% Dropperette (Cyclosporine) 2) Fluticasone Propionate 50 Mcg/actuation Jennings,suspension (Fluticasone propionate) Patient has been reassessed/reevaluated/re-examined. H&P has been reviewed. No interval changes. - History Principal diagnosis: Irregular uterine bleeding and uterine Fibroids - Allergies and Medications Current Medications: Allergies codeine Allergy (Verified 12/18/21 17:47) hallucinations shellfish derived Allergy (Unverified 12/18/21 17:47) Swelling shrimp Allergy (Verified 12/18/21 17:47) Hives Sulfa (Sulfonamide Antibiotics) Allergy (Verified 12/18/21 17:47) Rash Home Medications Medication Instructions Recorded Confirmed Last Taken Type Advair Diskus 250-50 mcg 1 puff INHALATION BID 06/01/19 12/18/21 05/29/19 History Albuterol Sulfate [Proair 2 puff IH Q4H PRN 12/18/21 12/18/21 Unknown History Respiclick] Multivitamin/Iron/Folic Acid 1 each PO DAILY 12/18/21 12/18/21 Unknown History [Centrum Women Tablet] Mcdermott-3 Fatty Acids/Fish Oil [Fish 1 each PO DAILY 12/18/21 12/18/21 Unknown History Oil] Omeprazole 20 mg PO DAILY PRN 12/18/21 12/18/21 Unknown History Active Medications Acetaminophen (Acetaminophen 500 Mg Tab) 1,000 mg PO PREOP VALERIA Lactated Ringer's (Lactated Ringers) 1,000 mls @ 100 mls/hr IV DIRECT VALERIA Stop: 12/25/21 23:59 Cefazolin Sodium (Ancef/Sterile Water 2 Gm/20 Ml) 2 gm in 20 mls @ 80 mls/hr IV PREOP NR; Protocol Midazolam HCl (Midazolam 2 Mg/2 Ml Inj) 2 mg IV PREOP VALERIA - Brief post op/procedure progress note Date of procedure: 12/25/21 Pre-op diagnosis: Irregular uterine bleeding, fibroids Post-op diagnosis: same (w/ endometrial polyp) Procedure: Hysteroscopic polypectomy with D&C Anesthesia: other (LMA) Findings: endometrial polyp Surgeon: JEFERSON DEUTSCH Estimated blood loss: minimal Pathology: list (endometrial tissue and polyp) Specimen disposition: to lab Condition: stable - Hospital course Hospital course: normal - Disposition Condition at discharge: Good Disposition: 01 HOME / SELF CARE / HOMELESS - Discharge Diagnoses (1) Irregular uterine bleeding Status: Acute (2) Fibroid Status: Acute (3) Endometrial polyp Status: Acute Short Stay Discharge Plan Activity: other (no sex x1 week) Weight Bearing Status: Full Weight Bearing Diet: regular Special Instructions: no heavy lifting (greater than 25lbs x1week) Follow up with: EAN RIOS MD [Primary Care Provider] - 7 Days JEFERSON DEUTSCH MD [Staff Physician] - 7 Days Prescriptions: RX: Ibuprofen [Motrin 800 MG tab] 800 mg PO Q8HR PRN #30 tablet PRN Reason: Pain , Severe (7-10)
[2021-12-25] MEDS ORDERED: ACETAMINOPHEN 500 MG TAB PO SCH (06:00)
[2021-12-25] MEDS ORDERED: LACTATED RINGERS 1,000 ML IV SCH (06:00)
[2021-12-25] MEDS ORDERED: MIDAZOLAM 2 MG/2 ML INJ IV SCH (06:00)
[2021-12-25] MEDS ORDERED: ceFAZolin/Water 2 GM/20 ML 2 GM/20 ML SYRINGE IV NR (06:00)
--- NOTE | 2021-12-25 07:17 | Anesthesia Day of Surgery ---
Anesthesia Day of Surgery - Day of Surgery Patient Examined: Yes Patient H&P Reviewed: Yes Patient is NPO: Yes
[2021-12-25] MEDS ORDERED: propofoL 200 MG/20 ML VIAL IV ONE (07:24)
[2021-12-25] MEDS ORDERED: fentaNYL 100 MCG/2 ML INJ ONE (07:24)
[2021-12-25] MEDS ORDERED: LIDOCAINE PF 100 MG/5 ML (CARDIAC SYRINGE) IV ONE (07:24)
[2021-12-25] MEDS ORDERED: dexAMETHasone 20 MG/5 ML VIAL ONE (09:48)
[2021-12-25] MEDS ORDERED: ONDANSETRON 4 MG/2 ML INJ ONE (09:48)
[2021-12-25] MEDS ORDERED: ePHEDrine SULFATE 50 MG/1 ML INJ ONE (09:54)
[2021-12-25] MEDS ORDERED: SODIUM CHLORIDE 0.9% IRRIG SOLN 2000 ML IR ONE (10:36)
--- NOTE | 2021-12-25 10:57 | Operative Report ---
Operative Report Operative Report: Date; 12/25/2021 PREOPERATIVE DIAGNOSES: 1. Irregular uterine bleeding 2. Uterine fibroid POSTOPERATIVE DIAGNOSES: 1. Irregular uterine bleeding 2. Uterine fibroid 3. Endometrial polyp PROCEDURE PERFORMED: 1. Cervical dilation and uterine curettage (D&C). 2. Hysteroscopy. 3. Resection of endometrial polyp ANESTHESIA: General ESTIMATED BLOOD LOSS: Less than minimal cc. INDICATIONS: This is a 56-year-old female that presents above. PROCEDURE: The patient was seen in the preoperative suite. Expected procedure and postoperative course discussed with her. She was taken to the operative suite where general anesthesia was induced with only the hat parts cutter machine and anesthesiologist present. She was placed in a dorsal lithotomy position. She was prepped and draped in the normal sterile fashion. Timeout was performed. Her bladder was drained with the red rubber catheter which produced ilene roximately 100 cc of clear yellow urine. . A bivalve operative speculum was placed in the vagina. The cervix and vagina were grossly normal with no obvious masses or deformities and the anterior lip of the cervix was grasped with the single-tooth tenaculum. The uterus was sounded to ~8 cm. The cervix was progressively dilated to allow the operative hysteroscope. Under direct visualization, the ostia were within normal limits. The endometrial lining appeared to have normal with an endometrial polyp extending from the right fundal regio. However, there was no obvious evidence of malignancy. At this point the Myosure device was used to resect the polyp and endometrial tissue. The hysteroscope was removed and a small sharp curette was placed intrauterine very carefully using anterior wall for guidance. Endometrial curettings were obtained. The endometrial sampling was placed on Telfa pad and sent to Pathology for evaluation, permanent. The hysteroscope was introduced again, no evidence of perforation was noted. At this point procedure was ended. The single-tooth tenaculum and speculum were removed. The cervix was found to be hemostatic. Counts were correct. Patient was taken to the PACU stable. Distention fluid: Normal saline Deficit: 300 mL
[2021-12-25 13:00] VITALS: BP 138/74
== END 2021-12-25 11:45 | disposition home or self-care (01) ==
LOC: OR 05:59
PROVIDERS: ATTEND Obstetrics & Gynecology
DX: N92.6 Irregular menstruation, unspecified (principal); N93.8 Other specified abnormal uterine and vaginal bleeding; N84.0 Polyp of corpus uteri; G43.909 Migraine, unspecified, not intractable, without status migrainosus; J45.909 Unspecified asthma, uncomplicated; E66.9 Obesity, unspecified; K21.9 Gastro-esophageal reflux disease without esophagitis; M19.90 Unspecified osteoarthritis, unspecified site; Z98.51 Tubal ligation status; Z88.2 Allergy status to sulfonamides; Z20.822 Contact with and (suspected) exposure to COVID-19; Z91.013 Allergy to seafood; Z88.5 Allergy status to narcotic agent; Z88.8 Allergy status to other drugs, medicaments and biological substances; Z79.899 Other long term (current) drug therapy; Z87.19 Personal history of other diseases of the digestive system; Z98.890 Other specified postprocedural states; Z68.33 Body mass index [BMI] 33.0-33.9, adult
CPT/HCPCS: 36415; 58558; 81025; 85027; 88305; C1782; J0690; J1100; J2001; J2250; J2405; J2704; J3010; J3490; J7120; U0003

== ENCOUNTER 2022-01-17 12:53 | Outpatient (CLI) | payer BC ==
[2022-01-17 17:04] LABS: Basophils % (Auto) 0.8 % (0.0-1.8); Eosinophils % (Auto) 0.6 % (0.0-4.3); Hematocrit 38.1 % (30.3-42.9); Hemoglobin 12.2 gm/dl (10.1-14.3); Lymphocytes # (Auto) 1.6 K/mm3 (1.2-5.4); Lymphocytes % (Auto) 39.9 % (13.4-35.0); Mean Corpuscular HGB Conc 32 % (30-34); Mean Corpuscular Volume 94 fl (79-97); Monocytes # (Auto) 0.4 K/mm3 (0.0-0.8); Monocytes % (Auto) 9.3 % (0.0-7.3); Platelet Count 280 K/mm3 (140-440); Red Blood Count 4.05 M/mm3 (3.65-5.03); Red Cell Distribution Width 12.6 % (13.2-15.2)
[2022-01-17 17:17] LABS: Alanine Aminotransferase 15 units/L (7-56); BUN/Creatinine Ratio 17; Blood Urea Nitrogen 12 mg/dL (7-17); Calcium 8.6 mg/dL (8.4-10.2); Chol/HDL Ratio 3.51 %; HDL Cholesterol 58 mg/dL (40-59); Hemolysis Index 21; LDL Cholesterol,Direct 132 mg/dL (50-130)
== END 2022-01-17 12:54 | disposition home or self-care (01) ==
LOC: LAB 12:53
PROVIDERS: ATTEND Internal Medicine
DX: E78.5 Hyperlipidemia, unspecified (principal); Z79.899 Other long term (current) drug therapy
CPT/HCPCS: 36415; 80053; 80061; 85025

== ENCOUNTER 2022-02-02 22:47 | Emergency (ER) | payer BC ==
[2022-02-02 23:58] LABS: INR 0.91 (0.87-1.13)
[2022-02-02 23:59] LABS: Partial Thromboplastin Time 29.2 Sec. (24.2-36.6)
--- NOTE | 2022-02-03 00:18 | XRay Report ---
CHEST 2 VIEWS INDICATION / CLINICAL INFORMATION: sob,cp. COMPARISON: Chest x-ray 09/18/2021 FINDINGS: SUPPORT DEVICES: None. HEART / MEDIASTINUM: No significant abnormality. LUNGS / PLEURA: No significant pulmonary or pleural abnormality. No pneumothorax. BONES: No significant osseous abnormality. ADDITIONAL FINDINGS: No significant additional findings. IMPRESSION: 1. No active cardiopulmonary disease. Signer Name: Ramos Truong II, MD Signed: 02/03/2022 12:13 AM Workstation Name: [id number]
[2022-02-03 03:21] LABS: Alanine Aminotransferase 14 units/L (7-56); BUN/Creatinine Ratio 15; Blood Urea Nitrogen 12 mg/dL (7-17); Hemolysis Index 3
--- NOTE | 2022-02-03 04:09 | Cat Scan Report ---
CTA CHEST WITH CONTRAST INDICATION / CLINICAL INFORMATION: CHEST PAIN WITH SOB. TECHNIQUE: Axial CT images were obtained through the chest after injection of IV contrast. 3 plane SC P and/or 3D reconstructions were produced. All CT scans at this location are performed using CT dose reduction for ALARA by means of automated exposure control. COMPARISON: None available. FINDINGS: VASCULAR FINDINGS: PULMONARY ARTERY: Pulmonary artery is normal in size. No filling defects are present compatible with pulmonary artery embolus.. THORACIC AORTA: No significant abnormality. CORONARY ARTERY CALCIFICATION: Absent -- None. NONVASCULAR FINDINGS: LOWER NECK: Soft tissues and musculature of the lower neck demonstrate no significant abnormality. Th e thyroid demonstrates no significant abnormality. HEART: No significant abnormality. MEDIASTINUM / IVÁN: No significant abnormality. ESOPHAGUS: No significant abnormality. LYMPH NODES: No adenopathy within the axilla, mediastinum, or iván. LUNGS: No acute air space or interstitial disease. PLEURA: No pleural effusion. No pneumothorax. THORACIC SOFT TISSUES: No significant abnormality of the chest wall or upper thoracic musculature. BONES: No significant skeletal abnormalities. ADDITIONAL CHEST FINDINGS: None. UPPER ABDOMEN: No significant abnormality. IMPRESSION: 1. No CT evidence for pulmonary embolism. 2. No acute findings. Signer Name: Ramos Truong II, MD Signed: 02/03/2022 4:04 AM Workstation Name: [id number]
[2022-02-03] MEDS ORDERED: KETOROLAC 30 MG/1 ML INJ IV ONE (04:37)
--- NOTE | 2022-02-03 04:37 | Emergency Department Report ---
ED General Adult HPI - General Chief complaint: Dyspnea/Respdistress Stated complaint: CP,SOB Time Seen by Provider: 02/03/22 04:27 Source: patient Mode of arrival: Ambulatory Limitations: No Limitations - History of Present Illness Initial comments: Patient is 56-year-old female with history of asthma. Patient presented to the ER complaining of right lower chest pain since yesterday. Patient described her chest pain intermittent, sharp with no radiation. Patient stated that she is having some shortness of breath and wheezing yesterday and she took her breathing treatment with some improvement. Patient denied any fever or chills. She denied any abdominal pain, nausea or vomiting. - Related Data Home Medications Medication Instructions Recorded Confirmed Last Taken Advair Diskus 250-50 mcg 1 puff INHALATION BID 06/01/19 12/25/21 12/25/21 05:00 Albuterol Sulfate [Proair 2 puff IH Q4H PRN 12/18/21 12/25/21 12/23/21 09:00 Respiclick] Multivitamin/Iron/Folic Acid 1 each PO DAILY 12/18/21 12/25/21 12/24/21 09:00 [Centrum Women Tablet] [place]-3 Fatty Acids/Fish Oil [Fish 1 each PO DAILY 12/18/21 12/25/21 12/23/21 09:00 Oil] Omeprazole 20 mg PO DAILY PRN 12/18/21 12/25/21 12/23/21 09:00 Previous Rx's Medication Instructions Recorded Last Taken Type Ibuprofen [Motrin 800 MG tab] 800 mg PO Q8HR PRN #30 tablet 12/25/21 Unknown Rx Allergies Allergy/AdvReac Type Severity Reaction Status Date / Time codeine Allergy hallucinati Verified 12/18/21 17:47 ons shellfish derived Allergy Swelling Unverified 12/18/21 17:47 shrimp Allergy Hives Verified 12/18/21 17:47 Sulfa (Sulfonamide Allergy Rash Verified 12/18/21 17:47 Antibiotics) ED Review of Systems ROS: Stated complaint: CP,SOB Other details as noted in HPI Comment: All other systems reviewed and negative Constitutional: denies: chills, fever Respiratory: shortness of breath, wheezing. denies: cough, orthopnea, SOB with exertion, SOB at rest Cardiovascular: chest pain, dyspnea on exertion. denies: palpitations Gastrointestinal: denies: abdominal pain, nausea, vomiting Neurological: denies: headache, weakness ED Past Medical Hx - Past Medical History Previous Medical History?: Yes Hx Hypertension: No Hx Heart Attack/AMI: No Hx GERD: Yes Hx Liver Disease: No Hx Renal Disease: No Hx Arthritis: Yes (Knees) Hx Headaches / Migraines: Yes (Migraines) Hx Asthma: Yes (daily inhaler use) - Surgical History Past Surgical History?: Yes Hx Breast Surgery: Yes (Removal cyst and duct left breast) - Social History Smoking Status: Never Smoker - Medications Home Medications: Home Medications Medication Instructions Recorded Confirmed Last Taken Type Advair Diskus 250-50 mcg 1 puff INHALATION BID 06/01/19 12/25/21 12/25/21 05:00 History Albuterol Sulfate [Proair 2 puff IH Q4H PRN 12/18/21 12/25/21 12/23/21 09:00 History Respiclick] Multivitamin/Iron/Folic Acid 1 each PO DAILY 12/18/21 12/25/21 12/24/21 09:00 History [Centrum Women Tablet] [place]-3 Fatty Acids/Fish Oil [Fish 1 each PO DAILY 12/18/21 12/25/21 12/23/21 09:00 History Oil] Omeprazole 20 mg PO DAILY PRN 12/18/21 12/25/21 12/23/21 09:00 History Ibuprofen [Motrin 800 MG tab] 800 mg PO Q8HR PRN #30 tablet 12/25/21 Unknown Rx ED Physical Exam - General Limitations: No Limitations General appearance: alert, in no apparent distress - Head Head exam: Present: atraumatic, normocephalic, normal inspection - ENT ENT exam: Present: normal exam, normal orophraynx, mucous membranes moist - Respiratory Respiratory exam: Present: normal lung sounds bilaterally, chest wall tenderness - Cardiovascular Cardiovascular Exam: Present: regular rate, normal rhythm, normal heart sounds - GI/Abdominal GI/Abdominal exam: Present: soft, normal bowel sounds. Absent: distended, tenderness, guarding, rebound, rigid, organomegaly, mass, bruit, pulsatile mass, hernia - Extremities Exam Extremities exam: Present: normal inspection, full ROM, normal capillary refill. Absent: tenderness - Back Exam Back exam: Present: normal inspection, full ROM. Absent: CVA tenderness (R), CVA tenderness (L) - Neurological Exam Neurological exam: Present: alert, oriented X3, CN II-XII intact, normal gait, reflexes normal. Absent: motor sensory deficit - Psychiatric Psychiatric exam: Present: normal mood - Skin Skin exam: Present: warm, intact, normal color ED Course Vital Signs 02/02/22 02/03/22 22:55 02:46 Temperature 97.7 F 97.6 F Pulse Rate 77 79 Respiratory 18 18 Rate Blood Pressure 149/81 165/82 O2 Sat by Pulse 97 99 Oximetry ED Medical Decision Making - Lab Data Result diagrams: 02/02/22 23:11 - EKG Data -: EKG Interpreted by Or EKG shows normal: sinus rhythm Rate: normal - EKG Data Interpretation: no acute changes - Radiology Data Radiology results: report reviewed - Medical Decision Making Patient is 56-year-old female with history of asthma. Patient presented to the ER complaining of right lower chest pain since yesterday. Patient described her chest pain intermittent, sharp with no radiation. Patient stated that she is having some shortness of breath and wheezing yesterday and she took her breathing treatment with some improvement. Patient denied any fever or chills. She denied any abdominal pain, nausea or vomiting. EKG is unremarkable. Labs reviewed and showed elevated D-dimer however CTA chest is negative for PE or any other acute pathologies. Troponin is negative x2. Patient pain is reproducible. Patient given Toradol 30 mg IV with significant improvement. I started patient on Naprosyn and advised her to follow-up with her primary doctor in the next 2 to 3 days and to return to the ER if she develop any symptoms. Critical care attestation.: If time is entered above; I have spent that time in minutes in the direct care of this critically ill patient, excluding procedure time. ED Disposition Clinical Impression: Atypical chest pain, Acute costochondritis Disposition: HOME / SELF CARE / HOMELESS Is pt being admited?: No Condition: Stable Instructions: Nonspecific Chest Pain, Adult Referrals: ISAEL CAMEJO MD [Primary Care Provider] - 3-5 Days
[2022-02-03 06:17] VITALS: BP 126/71
--- NOTE | 2022-02-03 21:38 | Electrocardiograph Report ---
[facility] Test Date: 2022-02-02 Test Time: 22:51:40 Pat Name: OSVALDO KEATING Department: Room: Gender: F [employer] Developer: CHERYLE : 1965 Requested By: SHAQUILLE HENRY Order Number: [id number] Reading MD: Dorie Taylor Measurements Intervals [place] Rate: 77 P: 32 MI: 228 QRS: 45 QRSD: 92 T: 32 QT: 375 QTc: 426 Interpretive Statements Sinus rhythm Prolonged MI interval Probable left atrial enlargement Compared to ECG 03/27/2021 22:36:15 No significant change Electronically Signed On 02-03-2022 21:37:46 EDT by Dorie Taylor
== END 2022-02-03 06:17 | disposition home or self-care (01) ==
LOC: ED 22:47
DX: R07.89 Other chest pain (principal); M94.0 Chondrocostal junction syndrome [Tietze]; K21.9 Gastro-esophageal reflux disease without esophagitis; M19.90 Unspecified osteoarthritis, unspecified site; G43.909 Migraine, unspecified, not intractable, without status migrainosus; F17.200 Nicotine dependence, unspecified, uncomplicated; Z91.013 Allergy to seafood; Z88.2 Allergy status to sulfonamides; Z91.09 Other allergy status, other than to drugs and biological substances; Z79.899 Other long term (current) drug therapy
CPT/HCPCS: 36415; 71046; 71275; 80053; 84484; 85379; 85610; 85730; 93005; 96374; 99284; J1885; Q9967

== ENCOUNTER 2022-03-31 14:41 | Emergency (ER) | payer BC ==
[2022-03-31 15:28] VITALS: BP 117/75
--- NOTE | 2022-03-31 15:51 | XRay Report ---
Left ankle-3 views Left foot-3 views INDICATION: pain s/p fall. COMPARISON: None available. IMPRESSION: No acute fracture in the ankle or the foot. Normal alignment. Mild great toe MTP DJD. M ild enthesopathic change along the calcaneal tuberosity. Soft tissues are unremarkable. Signer Name: Noe Ralph MD Signed: 03/31/2022 3:46 PM Workstation Name: [id number]
--- NOTE | 2022-03-31 16:44 | Emergency Department Report ---
ED Lower Extremity HPI - General Chief Complaint: Extremity Injury, Lower Stated Complaint: SWOLLEN HEEL/FINGERS Time Seen by Provider: 03/31/22 15:13 Source: patient Mode of arrival: Ambulatory Limitations: No Limitations - History of Present Illness Initial Comments: This is a 56-year-old female nontoxic, well nourished in appearance, no acute signs of distress presents to the ED with c/o of left ankle and left foot pain times several days. Patient stated that she had a mechanical fall. Patient denies any other injuries or trauma. Patient denies any numbness, tingling, fever, chills, nausea, vomiting, chest pain, shortness of breath, headache, stiff neck. Patient denies any joint swelling or joint redness. Patient denies decreased range of motion. Patient stated has decreased gait due to pain. MD Complaint: ankle injury, foot injury -: days(s) Injury: Ankle: Left, Foot: Left Severity: mild Severity scale (0 -10): 8 Improves With: immobilization Worsens With: weight bearing, movement, palpation Context: fall Associated Symptoms: swelling, able to partially bear weight. denies: snap/pop sensation, numbness, tingling, unable to bear weight - Related Data Home Medications Medication Instructions Recorded Confirmed Last Taken Advair Diskus 250-50 mcg 1 puff INHALATION BID 06/01/19 12/25/21 12/25/21 05:00 Albuterol Sulfate [Proair 2 puff IH Q4H PRN 12/18/21 12/25/21 12/23/21 09:00 Respiclick] Multivitamin/Iron/Folic Acid 1 each PO DAILY 12/18/21 12/25/21 12/24/21 09:00 [Centrum Women Tablet] [place]-3 Fatty Acids/Fish Oil [Fish 1 each PO DAILY 12/18/21 12/25/21 12/23/21 09:00 Oil] Omeprazole 20 mg PO DAILY PRN 12/18/21 12/25/21 12/23/21 09:00 Previous Rx's Medication Instructions Recorded Last Taken Type Ibuprofen [Motrin 800 MG tab] 800 mg PO Q8HR PRN #30 tablet 12/25/21 Unknown Rx Naproxen [Naprosyn] 500 mg PO BID #14 tablet 02/03/22 Unknown Rx Naproxen 500 mg PO Q12H PRN #12 tab 03/31/22 Unknown Rx Allergies Allergy/AdvReac Type Severity Reaction Status Date / Time codeine Allergy hallucinati Verified 12/18/21 17:47 ons shellfish derived Allergy Swelling Unverified 12/18/21 17:47 shrimp Allergy Hives Verified 12/18/21 17:47 Sulfa (Sulfonamide Allergy Rash Verified 12/18/21 17:47 Antibiotics) ED Review of Systems ROS: Stated complaint: SWOLLEN HEEL/FINGERS Other details as noted in HPI Comment: All other systems reviewed and negative Constitutional: denies: chills, fever Eyes: denies: eye pain, eye discharge, vision change ENT: denies: ear pain, throat pain Respiratory: denies: cough, shortness of breath, wheezing Cardiovascular: denies: chest pain, palpitations Endocrine: no symptoms reported Gastrointestinal: denies: abdominal pain, nausea, diarrhea Genitourinary: denies: urgency, dysuria, discharge Musculoskeletal: denies: back pain, joint swelling, arthralgia Skin: denies: rash, lesions Neurological: denies: headache, weakness, paresthesias Psychiatric: denies: anxiety, depression Hematological/Lymphatic: denies: easy bleeding, easy bruising ED Past Medical Hx - Past Medical History Hx Hypertension: No Hx Heart Attack/AMI: No Hx GERD: Yes Hx Liver Disease: No Hx Renal Disease: No Hx Arthritis: Yes (Knees) Hx Headaches / Migraines: Yes (Migraines) Hx Asthma: Yes (daily inhaler use) - Surgical History Hx Breast Surgery: Yes (Removal cyst and duct left breast) - Social History Smoking Status: Never Smoker - Medications Home Medications: Home Medications Medication Instructions Recorded Confirmed Last Taken Type Advair Diskus 250-50 mcg 1 puff INHALATION BID 06/01/19 12/25/21 12/25/21 05:00 History Albuterol Sulfate [Proair 2 puff IH Q4H PRN 12/18/21 12/25/21 12/23/21 09:00 History Respiclick] Multivitamin/Iron/Folic Acid 1 each PO DAILY 12/18/21 12/25/21 12/24/21 09:00 History [Centrum Women Tablet] [place]-3 Fatty Acids/Fish Oil [Fish 1 each PO DAILY 12/18/21 12/25/21 12/23/21 09:00 History Oil] Omeprazole 20 mg PO DAILY PRN 12/18/21 12/25/21 12/23/21 09:00 History Ibuprofen [Motrin 800 MG tab] 800 mg PO Q8HR PRN #30 tablet 12/25/21 Unknown Rx Naproxen [Naprosyn] 500 mg PO BID #14 tablet 02/03/22 Unknown Rx Naproxen 500 mg PO Q12H PRN #12 tab 03/31/22 Unknown Rx ED Physical Exam - General Limitations: No Limitations General appearance: alert, in no apparent distress - Head Head exam: Present: atraumatic, normocephalic - Eye Eye exam: Present: normal appearance - Neck Neck exam: Present: normal inspection, full ROM. Absent: lymphadenopathy - Respiratory Respiratory exam: Absent: respiratory distress - Cardiovascular Cardiovascular Exam: Present: regular rate - Extremities Exam Extremities exam: Present: full ROM, tenderness, normal capillary refill. Abs ent: pedal edema, joint swelling, calf tenderness - Expanded Lower Extremity Exam Left Hip exam: Present: normal inspection, full ROM. Absent: tenderness, swelling Upper Leg exam: Present: normal inspection, full ROM. Absent: tenderness, swelling Knee exam: Present: normal inspection, full ROM. Absent: tenderness, swelling Lower Leg exam: Present: normal inspection, full ROM. Absent: tenderness, swelling, abrasion, laceration, ecchymosis, deformity, crepidus, dislocation, erythema, palpable cord, Bolivar's sign Ankle exam: Present: normal inspection, full ROM, tenderness, swelling, ecchymosis. Absent: abrasion, laceration, deformity, crepidus, dislocation, erythema, anterior draw sign Foot/Toe exam: Present: normal inspection, full ROM, tenderness. Absent: swelling, abrasion, laceration, ecchymosis, deformity, crepidus, dislocation, erythema, amputation, puncture wound, foreign body, calcaneal tenderness, tenderness at base of 5th metatarsal, nail avulsion, subungual hematoma Neuro vascular tendon exam: Present: no vascular compromise Gait: Positive: observed and limited by pain 1 - pain here 1 - pain here - Back Exam Back exam: Present: normal inspection, full ROM. Absent: tenderness, CVA tenderness (R), CVA tenderness (L), muscle spasm, paraspinal tenderness, vertebral tenderness, rash noted - Neurological Exam Neurological exam: Present: alert, oriented X3 - Psychiatric Psychiatric exam: Present: normal affect, normal mood - Skin Skin exam: Present: warm, dry, intact, normal color. Absent: rash - Other Other exam information: Negative Tubbs test to the left lower extremity. ED Course Vital Signs 03/31/22 14:58 Temperature 97.8 F Pulse Rate 81 Respiratory 18 Rate Blood Pressure 117/75 [Right] O2 Sat by Pulse 98 Oximetry - Reevaluation(s) Reevaluation #1: 03/31/22 16:42 Patient is speaking in full sentences with no signs of distress noted. ED Lower Extremity MDM - [place] [address] XRay Report Signed Patient: OSVALDO KEATING MR#: [id number] : 1965 Acct:[id number] Age/Sex: 56 / F ADM Date: 03/31/22 Loc: ED Attending Dr: Ordering Physician: DOMINGO ROMEO NP Date of Service: 03/31/22 Procedure(s): XR ankle 3+V LT Accession Number(s): [id number] cc: DOMINGO ROMEO NP Fluoro Time In Minutes: Left ankle-3 views Left foot-3 views INDICATION: pain s/p fall. COMPARISON: None available. IMPRESSION: No acute fracture in the ankle or the foot. Normal alignment. Mild great toe MTP DJD. Mild enthesopathic change along the calcaneal tuberosity. Soft tissues are unremarkable. Signer Name: Noe Ralph MD Signed: 03/31/2022 3:46 PM Workstation Name: [id number] Transcribed By: ASHLEY Dictated By: Noe Ralph MD Electronically Authenticated By: Noe Ralph MD Signed Date/Time: 03/31/22 1546 DD/ 44 TD/TT: [facility] [address] [place] [address] XRay Report Signed Patient: OSVALDO KEATING MR#: [id number] : 1965 Acct:[id number] Age/Sex: 56 / F ADM Date: 03/31/22 Loc: ED Attending Dr: Ordering Physician: DOMINGO ROMEO NP Date of Service: 03/31/22 Procedure(s): XR foot 3+V LT Accession Number(s): [id number] cc: DOMNIGO ROMEO NP Fluoro Time In Minutes: Left ankle-3 views Left foot-3 views INDICATION: pain s/p fall. COMPARISON: None available. IMPRESSION: No acute fracture in the ankle or the foot. Normal alignment. Mild great toe MTP DJD. Mild enthesopathic change along the calcaneal tuberosity. Soft tissues are unremarkable. Signer Name: Noe Ralph MD Signed: 03/31/2022 3:46 PM Workstation Name: [id number] Transcribed By: ASHLEY Dictated By: Noe Ralph MD Electronically Authenticated By: Noe Ralph MD Signed Date/Time: 03/31/221545 DD/ 44 TD/TT: - Medical Decision Making This is a 56-year-old female that presents with left ankle and foot injury. Patient is stable and was examined by me. I referred patient to an orthopedic doctor for further evaluation for possible MRI. X-ray has been obtained and di ctated by the radiologist. Patient is notified of the x-ray report with noted by the patient. Patient was instructed to RICE therapy. Patient received crutches and Ilir wrap. Educated by RN how to use crutches. Patient is discharged with naproxen. At time of discharge, the patient does not seem toxic or ill in appearance. No acute signs of distress noted. Patient agrees to discharge treatment plan of care. No further questions noted by the patient. Critical care attestation.: If time is entered above; I have spent that time in minutes in the direct care of this critically ill patient, excluding procedure time. ED Disposition Clinical Impression: Left ankle injury Qualifiers: Encounter type: initial encounter Qualified Code(s): S99.912A - Unspecified injury of left ankle, initial encounter Injury of left foot Qualifiers: Encounter type: initial encounter Qualified Code(s): S99.922A - Unspecified injury of left foot, initial encounter Disposition: 01 HOME / SELF CARE / HOMELESS Is pt being admited?: No Does the pt Need Aspirin: No Condition: Stable Instructions: RICE Therapy for Routine Care of Injuries, [id number] Additional Instructions: Follow-up with a orthopedic doctor in 3-5 days or if symptoms worsen and continue return to emergency room as soon as possible. No physical activity that extremity until cleared by orthopedic doctor Prescriptions: Naproxen 500 mg PO Q12H PRN #12 tab PRN Reason: Pain , Severe (7-10) Referrals: PRIMARY CARE, [Referring] - 3-5 Days ZACHARY SANDOVAL MD [Staff Physician] - 3-5 Days Time of Disposition: 16:45
== END 2022-03-31 17:39 | disposition home or self-care (01) ==
LOC: ED 14:41
DX: S99.912A Unspecified injury of left ankle, initial encounter (principal); S99.922A Unspecified injury of left foot, initial encounter; K21.9 Gastro-esophageal reflux disease without esophagitis; M19.90 Unspecified osteoarthritis, unspecified site; G43.909 Migraine, unspecified, not intractable, without status migrainosus; J45.909 Unspecified asthma, uncomplicated; Z88.5 Allergy status to narcotic agent; Z91.013 Allergy to seafood; Z88.2 Allergy status to sulfonamides; Z79.899 Other long term (current) drug therapy
CPT/HCPCS: 99283

== ENCOUNTER 2022-05-23 07:24 | Outpatient (CLI) | payer BC ==
--- NOTE | 2022-05-23 09:57 | XRay Report ---
LEFT ANKLE 3 VIEWS INDICATION: Left ankle pain. COMPARISON: None. IMPRESSION: No acute osseous or soft tissue abnormality. No significant DJD. LEFT FOOT 3 VIEWS INDICATION: LEFT FOOT PAIN. COMPARISON: None. IMPRESSION: There is a mild hallux valgus deformity. No acute osseous abnormality or bone lesion. No significant joint pathology. Small plantar spur is noted. Soft tissues are unremarkable. Signer Name: Otis Coburn Jr, MD Signed: 05/23/2022 9:53 AM Workstation Name: [id number]
--- NOTE | 2022-05-23 13:38 | Magnetic Resonance Report ---
MRI LEFT ANKLE WITHOUT CONTRAST INDICATION / CLINICAL INFORMATION: M77.9 LEFT ANKLE PAIN. TECHNIQUE: Multiplanar, multisequence MR images were obtained. No contrast used. COMPARISON: None available. FINDINGS: ACHILLES TENDON: Thickened measuring up to 7 mm in AP dimension distally with abnormal signal intensi ty. There is mild retrocalcaneal bursitis as well as mild edema within the pre-Achilles fat. PLANTAR FASCIA: No significant abnormality. POSTERIOR TIBIAL / FLEXOR TENDONS: No significant abnormality. PERONEAL TENDONS: No significant abnormality. Incidental peroneal quartus. ANTERIOR TIBIAL / EXTENSOR TENDONS: No significant abnormality. ANTERIOR TALOFIBULAR LIGAMENT: Chronic tear. CALCANEOFIBULAR LIGAMENT: Chronic tear. TIBIOFIBULAR LIGAMENTS: No significant abnormality. INTEROSSEOUS LIGAMENT / MEMBRANE: No significant abnormality. DELTOID LIGAMENTS: No significant abnormality. SPRING LIGAMENT COMPLEX: No significant abnormality. TIBIOTALAR JOINT SPACE: No chondrosis or articular cartilage defect. No significant joint effusion or synovitis. No intra-articular bodies. SUBTALAR JOINTS: No significant abnormality. SINUS TARSI: No significant abnormality. TARSAL TUNNEL: No significant abnormality. BONES / OTHER JOINTS: Mild bone marrow edema posterior calcaneus at distal Achilles attachment. No fr acture. No osseous lesion. SOFT TISSUES: Mild subcutaneous edema about the ankle. ADDITIONAL FINDINGS: None. IMPRESSION: 1. Mild Achilles tendinosis and reactive calcaneal bone marrow edema with associated retrocalcaneal b ursitis. 2. Chronic sprains ATFL and calcaneofibular ligaments Report dictated by: Malcolm Hirsch MD Report dictated on: 05/23/2022 10:52 AM I have reviewed the images, agree with this report, and edited this report as needed. Signer Name: Macario Batres MD Signed: 05/23/2022 1:34 PM Workstation Name: [id number]
== END 2022-05-23 07:25 | disposition home or self-care (01) ==
LOC: MRI 07:24
PROVIDERS: ATTEND Podiatrist Foot & Ankle Surgery
DX: S93.412A Sprain of calcaneofibular ligament of left ankle, initial encounter (principal); M20.12 Hallux valgus (acquired), left foot; M77.32 Calcaneal spur, left foot; M77.9 Enthesopathy, unspecified; M77.52 Other enthesopathy of left foot and ankle; M79.89 Other specified soft tissue disorders; X58.XXXA Exposure to other specified factors, initial encounter; Y93.89 Activity, other specified; Y92.89 Other specified places as the place of occurrence of the external cause; Y99.8 Other external cause status
CPT/HCPCS: 73721